=== PATIENT | male | born 1960 | race American Indian/Alaskan Native ===

== ENCOUNTER 2017-07-29 13:46 | Emergency (ER) | payer OTHER ==
[2017-07-29] MEDS ORDERED: NORMODYNE IV ONE (14:04)
[2017-07-29] MEDS ORDERED: APRESOLINE IV ONE (15:02)
[2017-07-29 16:54] LABS: Basophils # (Auto) 0.1 K/mm3 (0.0-0.1); Basophils % (Auto) 1.2 % (0.0-1.8); Eosinophils # (Auto) 0.1 K/mm3 (0.0-0.4); Eosinophils % (Auto) 2.2 % (0.0-4.3); Hematocrit 41.7 % (35.5-45.6); Hemoglobin 13.7 gm/dl (11.8-15.2); Lymphocytes # (Auto) 2.3 K/mm3 (1.2-5.4); Lymphocytes % (Auto) 47.9 % (13.4-35.0); Mean Corpuscular HGB Conc 33 % (32-34); Mean Corpuscular Hemoglobin 27 pg (28-32); Mean Corpuscular Volume 81 fl (84-94); Monocytes # (Auto) 0.4 K/mm3 (0.0-0.8); Monocytes % (Auto) 8.7 % (0.0-7.3); Platelet Count 222 K/mm3 (140-440); Red Blood Count 5.18 M/mm3 (3.65-5.03); Red Cell Distribution Width 15.8 % (13.2-15.2)
[2017-07-29] MEDS ORDERED: ZOFRAN IV ONE (17:11)
--- NOTE | 2017-07-29 18:05 | Emergency Department Report ---
HPI - General Chief Complaint: High BP Time Seen by Provider: 07/29/17 14:04 - HPI HPI: The patient is a 56-year-old male with a history of hypertension, who presents for evaluation of elevated blood pressure. He admits to some mild intermittent dizziness for the past week, exacerbated with position changes, improved with supine positioning at rest. He shares that he has been noncompliant with antihypertensive meds due to erectile dysfunction side effects in the past. The patient denies fever, headache, neck pain, paresthesias, focal motor weakness, blurry vision, ear pain, tinnitus, chest pain, hemoptysis, dyspnea, abdominal pain, confusion or altered mental status, or recent URI or diarrhea. ED Past Medical Hx - Past Medical History Previous Medical History?: Yes Hx Hypertension: Yes - Surgical History Past Surgical History?: Yes Additional Surgical History: lump removed from back - Social History Smoking Status: Never Smoker Substance Use Type: None - Medications Home Medications: Home Medications Medication Instructions Recorded Confirmed Last Taken Type Amlodipine Besylate [Norvasc] 10 mg PO QDAY #30 tablet 07/29/17 Unknown Rx Hydrochlorothiazide [HCTZ] 25 mg PO QDAY #30 tablet 07/29/17 Unknown Rx ED Review of Systems ROS: Stated complaint: HIGH BLOOD PRESSURE Other details as noted in HPI Constitutional: reports dizziness denies: fever ENT: denies: throat or neck pain Respiratory: denies: cough, shortness of breath Cardiovascular: denies: chest pain Endocrine: denies unexplained weight loss or gain Gastrointestinal: denies: abdominal pain, nausea Genitourinary: denies: dysuria Musculoskeletal: denies: leg swelling Skin: denies: rash Neurological: denies: headache Hematological/Lymphatic: denies: easy bleeding or easy bruising Psych: denies sadness or hopelessness Physical Exam - Physical Exam Vital Signs: Vital Signs 07/29/17 07/29/17 07/29/17 13:54 14:09 14:15 Temperature 97.9 F Pulse Rate 96 H 84 87 Respiratory 20 20 15 Rate Blood Pressure 236/140 221/146 Blood Pressure [Right] O2 Sat by Pulse 98 98 97 Oximetry 07/29/17 07/29/17 07/29/17 14:20 14:21 14:30 Temperature Pulse Rate 86 76 Respiratory 18 14 Rate Blood Pressure 264/164 198/129 Blood Pressure [Right] O2 Sat by Pulse 100 97 Oximetry 07/29/17 07/29/17 07/29/17 14:45 14:51 15:00 Temperature 97.9 F Pulse Rate 74 96 H 83 Respiratory 16 18 16 Rate Blood Pressure 181/113 202/130 Blood Pressure 236/140 [Right] O2 Sat by Pulse 96 100 99 Oximetry 07/29/17 07/29/17 07/29/17 15:15 15:21 15:30 Temperature Pulse Rate 79 87 83 Respiratory 17 15 Rate Blood Pressure 202/130 206/173 146/80 Blood Pressure [Right] O2 Sat by Pulse 97 98 Oximetry 07/29/17 07/29/17 07/29/17 15:45 16:00 16:15 Temperature Pulse Rate 79 71 70 Respiratory 17 9 L 16 Rate Blood Pressure 146/80 110/47 146/80 Blood Pressure [Right] O2 Sat by Pulse 99 100 98 Oximetry 07/29/17 07/29/17 07/29/17 16:31 16:45 17:00 Temperature Pulse Rate 74 71 71 Respiratory 10 L 16 15 Rate Blood Pressure 150/85 110/47 131/70 Blood Pressure [Right] O2 Sat by Pulse 97 98 97 Oximetry 07/29/17 17:15 Temperature Pulse Rate 71 Respiratory 16 Rate Blood Pressure 131/70 Blood Pressure [Right] O2 Sat by Pulse 99 Oximetry Physical Exam: General: well-nourished, well-developed, no acute distress Head: Normocephalic, atraumatic Eyes: normal sclera ENT: Mucous membranes are pink and moist Neck: trachea midline, neck supple, No neck stiffness, no cervical adenopathy Respiratory: Breath sounds equal bilaterally, no wheezing, rales, or rhonchi Cardio: S1 and S2 present, no murmurs, rubs, gallops, capillary refill is brisk Abdomen: Normoactive bowel sounds, soft abdomen, no rigidity, no guarding or rebound tenderness Musc: No pitting edema Skin: No rash Neuro: no facial drooping, normal speech Psych: Normal affect ED Course Vital Signs 07/29/17 07/29/17 07/29/17 13:54 14:09 14:15 Temperature 97.9 F Pulse Rate 96 H 84 87 Respiratory 20 20 15 Rate Blood Pressure 236/140 221/146 Blood Pressure [Right] O2 Sat by Pulse 98 98 97 Oximetry 07/29/17 07/29/1718 14:20 14:21 14:30 Temperature Pulse Rate 86 76 Respiratory 18 14 Rate Blood Pressure 264/164 198/129 Blood Pressure [Right] O2 Sat by Pulse 100 97 Oximetry 07/29/17 07/29/17 07/29/17 14:45 14:51 15:00 Temperature 97.9 F Pulse Rate 74 96 H 83 Respiratory 16 18 16 Rate Blood Pressure 181/113 202/130 Blood Pressure 236/140 [Right] O2 Sat by Pulse 96 100 99 Oximetry 07/29/17 07/29/17 07/29/17 15:15 15:21 15:30 Temperature Pulse Rate 79 87 83 Respiratory 17 15 Rate Blood Pressure 202/130 206/173 146/80 Blood Pressure [Right] O2 Sat by Pulse 97 98 Oximetry 07/29/17 07/29/17 07/29/17 15:45 16:00 16:15 Temperature Pulse Rate 79 71 70 Respiratory 17 9 L 16 Rate Blood Pressure 146/80 110/47 146/80 Blood Pressure [Right] O2 Sat by Pulse 99 100 98 Oximetry 07/29/17 07/29/17 07/29/17 16:31 16:45 17:00 Temperature Pulse Rate 74 71 71 Respiratory 10 L 16 15 Rate Blood Pressure 150/85 110/47 131/70 Blood Pressure [Right] O2 Sat by Pulse 97 98 97 Oximetry 07/29/17 17:15 Temperature Pulse Rate 71 Respiratory 16 Rate Blood Pressure 131/70 Blood Pressure [Right] O2 Sat by Pulse 99 Oximetry ED Medical Decision Making - Lab Data Result diagrams: 07/29/17 16:28 07/29/17 16:28 - Medical Decision Making The patient was seen and examined by myself. The patient is placed on a wheel cutter and continuous pulse ox. On initial evaluation, the patient was found to be in no distress. Evaluation orders are placed. The patient is given IV labetalol and hydralazine for his elevated blood pressure. Lab results exhibited mildly elevated creatinine of 2.0, BUN 20, the last labs were grossly unremarkable including WBC, hemoglobin, hematocrit, electrolytes. The on-call hospitalist Dr. Munoz was contacted. He agreed to consultation. He recommended discharge home with outpatient follow-up. On reexamination the patient's blood pressure was found to decrease outside of range concerning for hypertensive emergency. The patient is stable for discharge with outpatient follow-up. The patient is given follow-up and return instructions. The patient expressed understanding and agreed with the plan. The patient is discharged in stable condition. Critical care attestation.: If time is entered above; I have spent that time in minutes in the direct care of this critically ill patient, excluding procedure time. ED Disposition Clinical Impression: Hypertensive urgency, CKD (chronic kidney disease), stage I Disposition: DC-01 TO HOME OR SELFCARE Is pt being admited?: No Does the pt Need Aspirin: No Condition: Stable Instructions: Chronic Hypertension (ED), Hypertension (ED), Chronic Kidney Disease (ED) Prescriptions: Amlodipine Besylate [Norvasc] 10 mg PO QDAY #30 tablet Hydrochlorothiazide [HCTZ] 25 mg PO QDAY #30 tablet Referrals: CAT CASTREJON MD [Staff Physician] - 3-5 Days RENETTA LUKE MD [Staff Physician] - 3-5 Days Time of Disposition: 18:02
[2017-07-29 18:17] VITALS: BP 152/86
== END 2017-07-29 18:17 | disposition home or self-care (01) ==
LOC: ED 13:46
DX: I16.0 Hypertensive urgency (principal); I12.9 Hypertensive chronic kidney disease with stage 1 through stage 4 chronic kidney disease, or unspecified chronic kidney disease; N18.1 Chronic kidney disease, stage 1; Z88.0 Allergy status to penicillin
CPT/HCPCS: 36415; 80048; 83880; 85025; 93005; 93010; 96374; 96375; 99284; J0360; J2405

== ENCOUNTER 2017-08-10 14:18 | Outpatient (CLI) | payer OTHER ==
[2017-08-10 15:16] LABS: Bilirubin,Urine NEG (Negative); Blood,Urine NEG (Negative); Color,Urine Yellow (Yellow); Mucus,Urine FEW /HPF; Nitrite,Urine NEG (Negative); Urobilinogen,Urine < 2.0 mg/dL (<2.0)
== END 2017-08-10 14:19 | disposition home or self-care (01) ==
LOC: LAB 14:18
PROVIDERS: ATTEND Internal Medicine Nephrology
DX: I12.9 Hypertensive chronic kidney disease with stage 1 through stage 4 chronic kidney disease, or unspecified chronic kidney disease (principal); N18.3 Chronic kidney disease, stage 3 (moderate); E78.5 Hyperlipidemia, unspecified; R80.0 Isolated proteinuria; E87.6 Hypokalemia
CPT/HCPCS: 36415; 81001; 82088; 84165; 86021; 86160

== ENCOUNTER 2017-08-13 07:37 | Outpatient (CLI) | payer OTHER ==
--- NOTE | 2017-08-13 09:01 | Ultrasound Report ---
ULTRASOUND RENAL BILATERAL HISTORY: Chronic kidney disease, stage III. COMPARISON: None. TECHNIQUE: transabdominal ultrasound with color Doppler interrogation. FINDINGS: The right kidney measures 12.6 x 4.5 x 4.7cm. Right renal cortex: 1.6cm. The left kidney measures 12.7 x 5.5 x 5.0cm. Left renal cortex: 1.3cm. The kidneys are normal size, contour and position. There is increased renal parenchymal echotexture bilaterally. Corticomedullary differentiation is preserved. A 1.1 x 1.8 cm cyst is noted in the mid right kidney. No evidence for calculus, mass, hydronephrosis or perinephric fluid. The views of the bladder and the region of the ureters appear normal. IMPRESSION: Slightly echogenic kidneys consistent with nonspecific renal parenchymal disease. Right renal cyst.
== END 2017-08-13 07:38 | disposition home or self-care (01) ==
LOC: US 07:37
PROVIDERS: ATTEND Internal Medicine Nephrology
DX: I12.9 Hypertensive chronic kidney disease with stage 1 through stage 4 chronic kidney disease, or unspecified chronic kidney disease (principal); N18.3 Chronic kidney disease, stage 3 (moderate); N28.1 Cyst of kidney, acquired
CPT/HCPCS: 76770

== ENCOUNTER 2017-09-08 11:17 | Outpatient (CLI) | payer OTHER ==
[2017-09-08 12:02] LABS: Albumin 4.1 g/dL (3.9-5); Calcium 9.5 mg/dL (8.4-10.2)
== END 2017-09-08 11:18 | disposition home or self-care (01) ==
LOC: LAB 11:17
PROVIDERS: ATTEND Internal Medicine Nephrology
DX: I12.9 Hypertensive chronic kidney disease with stage 1 through stage 4 chronic kidney disease, or unspecified chronic kidney disease (principal); N18.3 Chronic kidney disease, stage 3 (moderate)
CPT/HCPCS: 36415; 80048; 82040; 84100

== ENCOUNTER 2018-07-04 21:23 | Inpatient (IN) | payer OTHER ==
[2018-07-04] MEDS ORDERED: ASPIRIN PO ONE (21:40)
[2018-07-04] MEDS ORDERED: TYLENOL PO STA (21:41)
[2018-07-04] MEDS ORDERED: NACL 0.9% 500 ML 500 ML IV ONE (21:41)
[2018-07-04 21:59] LABS: Basophils # (Auto) 0.1 K/mm3 (0.0-0.1); Basophils % (Auto) 0.7 % (0.0-1.8); Eosinophils % (Auto) 0.2 % (0.0-4.3); Hematocrit 41.6 % (35.5-45.6); Hemoglobin 13.6 gm/dl (11.8-15.2); Lymphocytes # (Auto) 1.6 K/mm3 (1.2-5.4); Lymphocytes % (Auto) 16.4 % (13.4-35.0); Mean Corpuscular HGB Conc 33 % (32-34); Mean Corpuscular Volume 80 fl (84-94); Monocytes # (Auto) 0.8 K/mm3 (0.0-0.8); Monocytes % (Auto) 8.4 % (0.0-7.3); Platelet Count 208 K/mm3 (140-440); Red Blood Count 5.22 M/mm3 (3.65-5.03); Red Cell Distribution Width 15.7 % (13.2-15.2)
[2018-07-04 22:18] LABS: Calcium 9.3 mg/dL (8.4-10.2)
[2018-07-04] MEDS ORDERED: LEVAQUIN 750MG/150ML 750 MG/150 ML BAG IV ONE (22:23)
--- NOTE | 2018-07-04 22:28 | Emergency Department Report ---
ED Chest Pain HPI - General Chief Complaint: Chest Pain Stated Complaint: CP Time Seen by Provider: 07/04/18 22:15 Source: patient, family Mode of arrival: Ambulatory Limitations: No Limitations - History of Present Illness Initial Comments: 57-year-old -[place] male presents to the emergency department with a 2 day history of progressively worsening chest pain and shortness of breath. The chest pain is generalized and radiates to both shoulders. 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 He also has a past medical history of chronic kidney disease and hypertension. He has not taken anything for her symptoms prior to presentation. His primary care physician is Dr. Bert Middleton. The patient denies feeling as if he is feverish, he does present with a fever and some tachycardia and a code sepsis was initiated. Severity scale (0 -10): 6 - Related Data Home Medications Medication Instructions Recorded Confirmed Last Taken Aspirin 81 mg PO DAILY 07/04/18 07/04/18 07/04/18 Atorvastatin Calcium [Lipitor] 40 mg PO DAILY 07/04/18 07/04/18 07/04/18 Furosemide [Lasix] 20 mg PO DAILY 07/04/18 07/04/18 07/04/18 Lisinopril 20 mg PO DAILY 07/04/18 07/04/18 07/04/18 Metoprolol Tartrate 50 mg PO BID 07/04/18 07/04/18 07/04/18 Minoxidil [Loniten] 2.5 mg PO BID 07/04/18 07/04/18 07/04/18 amLODIPine [Norvasc] 10 mg PO DAILY 07/04/18 07/04/18 07/04/18 Allergies Allergy/AdvReac Type Severity Reaction Status Date / Time Penicillins Allergy Hives Verified 05/24/16 11:20 Heart Score - HEART Score History: Moderately suspicious EKG: Non-specific Age: 45-65 Risk factors: > 3 risk factors or hx of atherosclerotic disease Troponin: < normal limit HEART Score: 5 - Critical Actions Critical Actions: 4-6 pts:12-16.6% risk of adverse cardiac event. Should be admitted ED Review of Systems ROS: Stated complaint: CP Other details as noted in HPI Comment: All other systems reviewed and negative Constitutional: fever. denies: malaise Eyes: denies: eye pain, vision change ENT: denies: ear pain, throat pain Respiratory: shortness of breath. denies: orthopnea Cardiovascular: chest pain. denies: edema Gastrointestinal: denies: abdominal pain, vomiting Genitourinary: denies: dysuria, discharge Musculoskeletal: denies: back pain, arthralgia Skin: denies: rash, lesions Neurological: denies: headache, weakness ED Past Medical Hx - Past Medical History Hx Hypertension: Yes Hx CVA: Yes Hx Heart Attack/AMI: Yes (new onset) Hx Congestive Heart Failure: No Hx Diabetes: No Hx Renal Disease: Yes Hx Headaches / Migraines: Yes Hx Seizures: No Hx Asthma: No Hx COPD: No Hx Dementia: No Hx HIV: No Additional medical history: high cholesterol, Sleep Apnea, Dysphagia, Left Hemiparesis - Surgical History Hx Coronary Stent: No Hx Pacemaker: No Hx Internal Defibrillator: No Additional Surgical History: lump removed from back - Social History Smoking Status: Never Smoker Substance Use Type: None - Medications Home Medications: Home Medications Medication Instructions Recorded Confirmed Last Taken Type Aspirin 81 mg PO DAILY 07/04/18 07/04/18 07/04/18 History Atorvastatin Calcium [Lipitor] 40 mg PO DAILY 07/04/18 07/04/18 07/04/18 History Furosemide [Lasix] 20 mg PO DAILY 07/04/18 07/04/18 07/04/18 History Lisinopril 20 mg PO DAILY 07/04/18 07/04/18 07/04/18 History Metoprolol Tartrate 50 mg PO BID 07/04/18 07/04/18 07/04/18 History Minoxidil [Loniten] 2.5 mg PO BID 07/04/18 07/04/18 07/04/18 History amLODIPine [Norvasc] 10 mg PO DAILY 07/04/18 07/04/18 07/04/18 History ED Physical Exam - General Limitations: No Limitations - Other Other exam information: GENERAL: The patient is well-developed well-nourished. HEENT: Normocephalic. Atraumatic. Patient has moist mucous membranes. EYES: Extraocular motions are intact. Pupils are equal and reactive to light bilaterally. NECK: Supple. Trachea is midline. CHEST/LUNGS: Rhonchi heard at the bases. Mild tachypnea but no accessory muscle use. There is no respiratory distress noted. HEART/CARDIOVASCULAR: Regular. There is mild tachycardia. There is no obvious murmur. ABDOMEN: Abdomen is soft, nontender. Patient has normal bowel sounds. There is no abdominal distention. SKIN: Skin is warm and dry. NEURO: The patient is awake, alert, and oriented. The patient is cooperative. There is a chronic left-sided facial droop and some residual left-sided weakness. The patient has normal speech. MUSCULOSKELETAL: There is no tenderness or deformity. There is no evidence of acute injury. ED Course Vital Signs 07/04/18 07/04/18 07/04/18 21:45 23:50 23:52 Temperature 102.9 F H 98.3 F Pulse Rate 115 H 105 H Respiratory 22 Rate Blood Pressure 181/93 145/81 O2 Sat by Pulse 99 Oximetry JOHNNY score - Johnny Score Aspirin use within the Past 7 Days: (0) No 3 or more CAD Risk Factors: (1) Yes 2 or more Angina events in past 24 hrs: (1) Yes Known CAD with more than 50% Stenosis: (0) No Elevated Cardiac Markers: (0) No ST Deviation Greater than 0.5mm: (0) No ED Medical Decision Making - Lab Data Result diagrams: 07/04/18 21:49 07/04/18 21:49 - EKG Data -: EKG Interpreted by Me EKG shows normal: sinus rhythm, axis, intervals, QRS complexes (Q waves to the septal leads), ST-T waves (nonspecific lateral T waves) Rate: tachycardia (111 bpm) - EKG Data When compared to previous EKG there are: no significant change Interpretation: unchanged when compared t (05/25/18) - Radiology Data Radiology results: report reviewed, image reviewed interpreted by me: Chest x-ray shows some mild infiltrate towards the right lower lung concerning for pneumonia. EXAM: NM LUNG SCAN PERF/VENT HISTORY: CP, elevated dimer COMPARISON: July 04, 2018. TECHNIQUE: 5 millicuries technetium 99 M MAA administered by IV. 10 millicurie xenon 133 administered by ventilation. FINDINGS: Relatively homogeneous uptake of tracer on the ventilation portion of the study. Decreased activity on the perfusion portion exam following the right lung apex predominately the apical segment. There may be some involvement of the posterior segment. One large mismatched and 1 moderate segmental defect compatible with intermediate probability exam for pulmonary embolus. IMPRESSION: Intermediate probability exam for pulmonary embolus. Transcribed By: LMA Dictated By: BROOKS PADRON MD Electronically Authenticated By: BROOKS PADRON MD Signed Date/Time: 07/05/18 0020 - Medical Decision Making This patient presents with a two-day history of some chest pain and shortness of breath. He also presents with some fever and tachycardia and a code sepsis was called. The patient was started empirically on some Levaquin. A chest x-ray was done that did show concern for a right lower lobe pneumonia. The rest of the blood work was mostly unremarkable except for his chronic kidney disease and he did have an elevated d-dimer level. Because of the chronic kidney disease, a VQ scan was done that came back as intermediate probability for pulmonary embolism. 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 The patient will be admitted to the hospital for further evaluation and treatment was accepted for admission by the hospitalist, Dr. Ambrose. - Differential Diagnosis sepsis, pneumonia, SC, PE Critical Care Time: No Critical care attestation.: If time is entered above; I have spent that time in minutes in the direct care of this critically ill patient, excluding procedure time. ED Disposition Clinical Impression: Acute chest pain, Abnormal findings on imaging test CRI (chronic renal insufficiency) Qualifiers: Chronic kidney disease stage: unspecified stage Qualified Code(s): N18.9 - Chronic kidney disease, unspecified Hypertension Qualifiers: Hypertension type: essential hypertension Qualified Code(s): I10 - Essential (primary) hypertension Sepsis Qualifiers: Sepsis type: sepsis due to unspecified organism Qualified Code(s): A41.9 - Sepsis, unspecified organism Pneumonia Qualifiers: Pneumonia type: due to unspecified organism Laterality: right Lung location: lower lobe of lung Qualified Code(s): J18.1 - Lobar pneumonia, unspecified organism Disposition: OP ADMIT IP TO THIS HOSP Is pt being admited?: Yes Condition: Serious Instructions: Chest Pain (ED), Hypertension (ED), Bacterial Pneumonia (ED) Time of Disposition: 00:49
[2018-07-04 22:32] LABS: INR 1.04 (0.87-1.13)
--- NOTE | 2018-07-04 22:39 | XRay Report ---
FINAL REPORT EXAM: XR CHEST ROUTINE 2V HISTORY: possible Sepsis TECHNIQUE: Chest PA and lateral PRIORS: None. FINDINGS: There are streaky opacities along with confluent areas of density within the right lower lobe distrib ution most consistent with atelectasis/infiltrate. Cardiac silhouette is within normal range for size. No acute abnormality identified within the left l khari. Pulmonary vasculature is unremarkable. No pleural effusion identified IMPRESSION: Atelectasis/infiltrate in the right lower lobe
[2018-07-04] MEDS ORDERED: NORMODYNE IV ONE (22:49)
[2018-07-04] MEDS ORDERED: APRESOLINE IV ONE (22:49)
--- NOTE | 2018-07-05 00:20 | Nuclear Medicine Report ---
FINAL REPORT EXAM: NM LUNG SCAN PERF/VENT HISTORY: CP, elevated dimer COMPARISON: July 04, 2018. TECHNIQUE: 5 millicuries technetium 99 M MAA administered by IV. 10 millicurie xenon 133 administere d by ventilation. FINDINGS: Relatively homogeneous uptake of tracer on the ventilation portion of the study. Decreased activity on the perfusion portion exam following the right lung apex predominately the apic al segment. There may be some involvement of the posterior segment. One large mismatched and 1 modera te segmental defect compatible with intermediate probability exam for pulmonary embolus. IMPRESSION: Intermediate probability exam for pulmonary embolus.
[2018-07-05] MEDS ORDERED: NACL 0.9% 1000 ML 1,000 ML IV ONE ×2 (01:16→03:13)
[2018-07-05] MEDS ORDERED: NACL 0.9% 1000 ML 1,000 ML ONE (01:18)
[2018-07-05] MEDS ORDERED: ZOFRAN IV PRN (01:25)
--- NOTE | 2018-07-05 03:49 | History and Physical Report ---
CHIEF COMPLAINT: Pleuritic chest pain. OTHER COMPLAINT: Includes shortness of breath and fever. HISTORY OF PRESENTING ILLNESS: The patient is a 57-year-old male who said he has been having pleuritic chest pain going on for 2 days associated with shortness of breath, fever, and palpitations. There is no history of cough, no history of chills, and no history of nausea or vomiting. The patient presented for further evaluation at the Emergency Room. PAST MEDICAL HISTORY: Pertinent for hemorrhagic stroke with left-sided weakness in 05/2018. Also, the patient's past medical history includes hypertension, coronary artery disease, status post myocardial infarction, chronic kidney disease, migraine headaches, and hypercholesterolemia as well as sleep apnea, dysphagia. PAST SURGICAL HISTORY: Pertinent for lump removal from the back. FAMILY HISTORY: Noncontributory. SOCIAL HISTORY: The patient does not smoke, does not drink alcohol, and does not use illicit drug. MEDICATIONS: The patient is on aspirin 81 mg daily, Lipitor 40 mg by mouth daily, Lasix 20 mg by mouth daily, lisinopril 20 mg by mouth daily, metoprolol tartrate 50 mg by mouth twice daily, minoxidil 2.5 mg by mouth twice daily, amlodipine 10 mg by mouth daily. ALLERGIES: THE PATIENT IS ALLERGIC TO PENICILLIN. REVIEW OF SYSTEMS: CONSTITUTIONAL: There is fever, but no chills, no diaphoresis. HEENT: He has no headache or sore throat. CARDIOVASCULAR SYSTEM: There is pleuritic chest pain, but no orthopnea. RESPIRATORY: Shortness of breath is present. There is no cough. GASTROINTESTINAL SYSTEM: There is no nausea, no vomiting. No abdominal pain, diarrhea, or constipation. NEUROLOGICAL: There is no numbness, no dizziness. The patient has chronic left-sided weakness that occurred during his stroke in May 2018. MUSCULOSKELETAL: There is no joint pain or swelling. DERMATOLOGICAL SYSTEM: There is no skin rash or itching. GENITOURINARY SYSTEM: There is no dysuria, hematuria, or flank pain. Rest of system review is normal. PHYSICAL EXAMINATION: GENERAL: At the time of exam, the patient was found to be alert, oriented x 3, and not in acute distress. VITAL SIGNS: At the initial time of presentation showed temperature of 102.9 degrees Fahrenheit, pulse of 115, respirations 22, blood pressure 181/93, O2 sat of 99% on room air. HEENT: Shows pupils to be equal, round, reactive to light and accommodation. Extraocular muscles are intact. NECK: Supple with no JVD or carotid bruits. CARDIOVASCULAR SYSTEM: Shows normal first and second heart sounds with no gallops or murmurs. RESPIRATORY: Shows good air entry on both sides of the lungs with crackles in the right lower lung area. GASTROINTESTINAL SYSTEM: Shows abdomen to be full, soft, nontender with no organomegaly or rigidity. NEUROLOGIC: Shows chronic left-sided weakness. MUSCULOSKELETAL SYSTEM: Shows no joint swelling or tenderness. DERMATOLOGICAL SYSTEM: Shows no skin rash. GENITOURINARY SYSTEM: Showing no costovertebral angle tenderness. PERTINENT LABORATORY DATA AND IMAGING STUDIES: The patient had chest x-ray done that shows right-sided infiltrate versus atelectasis. Also, the patient had V/Q scan done because of chronic renal failure and it shows intermediate probability for pulmonary embolism. The patient's lab results show CBC with normal white count, normal hemoglobin, and normal hematocrit with CBC differential showing elevated segmented neutrophils of 74.3%. The patient's coagulation studies show a high D-dimer level of 4314 that led to the ordering of V/Q scan and the patient's chemistry showed elevated BUN of 26 with high creatinine of 2.3 consistent with chronic renal failure. Rest of the patient's chemistry was unremarkable. Cardiac enzymes came back unremarkable. DIAGNOSES: 1. Right lung pneumonia. 2. Pulmonary embolism. PLAN OF ACTION: 1. The patient will be admitted as inpatient to telemetry. 2. The patient will be on IV Levaquin 750 mg daily for treatment of pneumonia. 3. The patient will have stat pulmonary consult with Dr. London because of pulmonary embolism in a patient with recent history of hemorrhagic stroke and the sewing machine tester, Dr. London requested for Doppler ultrasound of the lower extremities to be done and that he will follow up with the patient in the morning. 4. The patient will be on p.r.n. medications like Tylenol 650 mg by mouth every 4 hours for fever and headache and IV Zofran 4 mg every 8 hours for nausea and vomiting. 5. The patient will have bilateral Doppler ultrasound of the lower extremities in the morning. 6. The patient will be on oxygen by nasal cannula at 2 liters per minute. 7. The patient will have cardiac enzymes involving troponin, total CK, and CK-MB check every 6 hours x 2 more levels. 8. The patient will be on sequential compressive device for DVT prophylaxis until reviewed by the sewing machine tester. JOB# [id number] OCN/NTS
[2018-07-05 06:56] LABS: Bilirubin,Urine NEG (Negative); Blood,Urine NEG (Negative); Color,Urine Yellow (Yellow); Mucus,Urine FEW /HPF; Protein,Urine <15 mg/dL mg/dL (Negative); Urobilinogen,Urine < 2.0 mg/dL (<2.0)
--- NOTE | 2018-07-05 09:13 | Consultation ---
History of Present Illness - Reason for Consult Consult date: 07/05/18 acute renal failure, chronic renal failure - History of Present Illness the patient is a 57 year old male with chronic kidney disease was admitted for worsening chest pain and SOB, was found to have possible pneumonia on CXR and was started on levofloxacin, V/Q was done and showed intermediate probability of PE but was not started on anti coagulation due to high risk of bleeding, he was noted to have abnormal kidney function and renal consult was requested Past History Past Medical History: other (CKD) Medications and Allergies Allergies Allergy/AdvReac Type Severity Reaction Status Date / Time Penicillins Allergy Hives Verified 05/24/16 11:20 Home Medications Medication Instructions Recorded Confirmed Last Taken Type Aspirin 81 mg PO DAILY 07/04/18 07/04/18 07/04/18 History Atorvastatin Calcium [Lipitor] 40 mg PO DAILY 07/04/18 07/04/18 07/04/18 History Furosemide [Lasix] 20 mg PO DAILY 07/04/18 07/04/18 07/04/18 History Lisinopril 20 mg PO DAILY 07/04/18 07/04/18 07/04/18 History Metoprolol Tartrate 50 mg PO BID 07/04/18 07/04/18 07/04/18 History Minoxidil [Loniten] 2.5 mg PO BID 07/04/18 07/04/18 07/04/18 History amLODIPine [Norvasc] 10 mg PO DAILY 07/04/18 07/04/18 07/04/18 History Active Meds: Active Medications Acetaminophen (Tylenol) 650 mg PO Q4H PRN PRN Reason: Fever >101 Levofloxacin/Dextrose (Levaquin 750mg/150ml) 750 mg in 150 mls @ 100 mls/hr IV Q48HR [facility]; Protocol Sodium Chloride (Nacl 0.9% 1000 Ml) 1,000 mls @ 125 mls/hr IV ONCE ONE Stop: 07/05/18 11:12 Last Admin: 07/05/18 03:15 Dose: 125 mls/hr Documented by: Ondansetron HCl (Zofran) 4 mg IV Q8H PRN PRN Reason: Nausea And Vomiting Review of Systems All systems: negative (shortness of breath) Exam - Vital Signs Vital signs: Vital Signs Temp Pulse Resp BP Pulse Ox 102.9 F H 115 H 22 181/93 99 07/04/18 21:45 07/04/18 21:45 07/04/18 21:45 07/04/18 21:45 07/04/18 21:45 - General Appearance General appearance: well-developed, well-nourished, appears stated age EENT: ATNC, PERRL, mucous membranes moist Neck: Present: neck supple Respiratory: Clear to Ascultation Heart: regular, S1S2 Gastrointestinal: Present: normoactive bowel sounds. Absent: tenderness, distended Integumentary: no rash, warm and dry Neurologic: no focal deficit, no asterixis, alert and oriented x3 Musculoskeletal: Present: other (no edema in BLE) Psychiatric: cooperative Results - Lab Results 07/04/18 21:49 07/04/18 21:49 Most recent lab results Calcium 9.3 mg/dL (8.4-10.2) 07/04/18 21:49 Assessment and Plan pneumonia possible PE chronic kidney disease Chest pain - Cr baseline ~1.5-2, started on IVF - will check urine lytes, protein - will check renal US - renally dose meds - strict I&O - daily weight thank you for allowing to participate in Mr Shipley's care Escobar Bender MD [phone]
[2018-07-05] MEDS ORDERED: LEVAQUIN 750MG/150ML 750 MG/150 ML BAG IV SCH (10:00)
[2018-07-05] MEDS ORDERED: HYDROMET PO PRN (11:03)
--- NOTE | 2018-07-05 11:29 | Consultation ---
History of Present Illness Consult date: 07/05/18 Requesting physician: RALPH BARBER Reason for consult: pulmonary embolism History of present illness: 57 y/o male who presented to the ED with pleuritic type chest pain. Patient had V/Q done as he has chronic renal disease and this was intermediate in value. Pulmonary was consulted secondary to concern for anticoagulation given recent hemorrhagic stroke last month. I evaluated patient on the floor and patient is actually complaining of upper abdominal pain that radiates to his right shoulder. He also says that he has this pain when he eats as well. His abdomen is mildly distended , soft but does have some tenderness with palpation that recreates the same type pain. He has never had abdominal surgery. My partner asked for bilateral lower ext dopplers but these have not been completed yet. Remainder of the review is negative. Past History Past Medical History: hypertension, hyperlipidemia, other (CKD, hemorrhagic stroke in 05/2018) Medications and Allergies Allergies Allergy/AdvReac Type Severity Reaction Status Date / Time Penicillins Allergy Hives Verified 05/24/16 11:20 Home Medications Medication Instructions Recorded Confirmed Last Taken Type Aspirin 81 mg PO DAILY 07/04/18 07/04/18 07/04/18 History Atorvastatin Calcium [Lipitor] 40 mg PO DAILY 07/04/18 07/04/18 07/04/18 History Furosemide [Lasix] 20 mg PO DAILY 07/04/18 07/04/18 07/04/18 History Lisinopril 20 mg PO DAILY 07/04/18 07/04/18 07/04/18 History Metoprolol Tartrate 50 mg PO BID 07/04/18 07/04/18 07/04/18 History Minoxidil [Loniten] 2.5 mg PO BID 07/04/18 07/04/18 07/04/18 History amLODIPine [Norvasc] 10 mg PO DAILY 07/04/18 07/04/18 07/04/18 History Active Meds: Active Medications Acetaminophen (Tylenol) 650 mg PO Q4H PRN PRN Reason: Fever >101 Hydrocodone Bit/Homatropine Methylb (Hydromet) 10 ml PO Q6H PRN PRN Reason: Cough Levofloxacin/Dextrose (Levaquin 750mg/150ml) 750 mg in 150 mls @ 100 mls/hr IV Q48HR [facility]; Protocol Last Admin: 07/05/18 09:23 Dose: 100 mls/hr Documented by: Morphine Sulfate (Morphine) 2 mg IV Q4H PRN PRN Reason: Pain, Moderate (4-6) Ondansetron HCl (Zofran) 4 mg IV Q8H PRN PRN Reason: Nausea And Vomiting Review of Systems All systems: negative Physical Examination Vital signs: Vital Signs Temp Pulse Resp BP Pulse Ox 102.9 F H 115 H 22 181/93 99 07/04/18 21:45 07/04/18 21:45 07/04/18 21:45 07/04/18 21:45 07/04/18 21:45 General appearance: no acute distress, alert, other (left sided facial droop) Eyes: non-icteric ENT: oropharynx moist Neck: supple, no lymphadenopathy Effort: normal Ascultation: Bilateral: clear Percussion: Bilateral: not dull Tactile fremitus: Bilateral: normal Cardiovascular: regular rate and rhythm Gastrointestinal: normoactive bowel sounds, soft, other (mild distention) Integumentary: normal Extremities: no cyanosis, no edema, pink and warm, pulses normal normal mental status Results - Laboratory Findings CBC and BMP: 07/04/18 21:49 07/04/18 21:49 PT/INR, D-dimer PT 14.0 Sec. (12.2-14.9) 07/04/18 21:49 INR 1.04 (0.87-1.13) 07/04/18 21:49 D-Dimer 4314.78 ng/mlDDU (0-234) H 07/04/18 21:49 Abnormal lab findings: Abnormal Labs 07/04/18 07/04/18 07/04/18 21:49 21:49 21:49 RBC 5.22 H MCV 80 L MCH 26 L RDW 15.7 H [place] % (Auto) 8.4 H Seg Neutrophils % 74.3 H D-Dimer 4314.78 H VBG pH 7.430 H BUN Creatinine Glucose 07/04/18 21:49 RBC MCV MCH RDW [place] % (Auto) Seg Neutrophils % D-Dimer VBG pH BUN 26 H Creatinine 2.3 H Glucose 166 H - Diagnostic Findings Chest x-ray: image reviewed (Plate-like atelectasis in the right lower lobe) Assessment and Plan 57 y/o male with recent hemorrhagic stroke, now admitted with chest pain vs epigastric pain with radiation to the right neck shoulder region and concern for PE. 1. Agree with Dopplers 2. Suggest neurology consult with the question of could this patient be anticoagulated if need be 3. At this time I would not suggest empiric anticoagulation given history of hemorrhagic CVA. Patient is currently on ASA so not sure if he just had hemorrhagic conversion of embolic stroke vs true hemorrhagic stroke. As stated in number 2, suggest Neuro evaluation. I do agree with lower ext dopplers and if positive, a bridgett filter would be most appropriate. 4. I am concern that this pain may be related to his gallbladder. Suggest ultrasound and checking LFT's. May even need a HIDA but would start with ultrasound first. 5. Just to be clear, I would not recommend starting anticoagulation on this person until he has been evaluated by neuro and there is clear documented evidence of VTE.
[2018-07-05] MEDS: TYLENOL PO PRN ×2 (11:47→23:30)
[2018-07-05 12:35] LABS: Creatine Kinase MB 1.5 ng/mL (0.0-4.0)
--- NOTE | 2018-07-05 15:13 | Cat Scan Report ---
CT HEAD WITHOUT CONTRAST: HISTORY: Hemorrhagic stroke. TECHNIQUE: Sequential CT images without contrast. FINDINGS: The small hemorrhage in the medial right thalamus seen on 06/02/18 exam has resolved. No new areas of hemorrhage are identified. Mild nonspecific chronic white matter changes are stable. Focal chronic infarcts in the left frontal white matter, right frontal white matter and right parietal white matter are again noted and unchanged. Ventricular size is within normal limits. Chronic infarct in the left cerebellar hemisphere has evolved since the previous exam. The remainder of the posterior fossa is within normal limits. The calvarium, sinuses and mastoid air cells are within normal limits. IMPRESSION: No acute intracranial process is identified. Resolved right thalamic hemorrhage since 06/02/18. Multiple chronic infarcts as described above.
[2018-07-05] MEDS: MORPHINE IV PRN (15:19)
--- NOTE | 2018-07-05 15:24 | Ultrasound Report ---
ULTRASOUND ABDOMEN COMPLETE: ULTRASOUND RENAL BILATERAL: TECHNIQUE: Transabdominal ultrasound with color Doppler interrogation. HISTORY: Cholecystitis, renal failure. COMPARISON: none. FINDINGS: LIVER: Normal. BILIARY SYSTEM: Normal. PANCREAS: Normal. SPLEEN: Normal. KIDNEYS: Both kidneys are normal size and position measuring 12-13 cm in length. The renal parenchyma is echogenic consistent with medical renal disease. No focal renal lesion or hydronephrosis. The bladder is unremarkable. AORTA/IVC: Normal. ASCITES: None. IMPRESSION: Medical renal disease.
[2018-07-05 16:58] LABS: Creatinine,Urine 91.6 mg/dL (0.1-20.0); Protein/Creatinine Ratio,Urine 0.17
--- NOTE | 2018-07-05 17:36 | Consultation ---
History of Present Illness Consult date: 07/05/18 Requesting physician: KIKA BRITO Reason for Consult: S/P [id number] hemorrhage History of present illness: 57 yr old male with hx of hypertension and hemorrhagic CVA in 2017, presented to ED with hx of chest pain radiating to both shoulders and SOB. CXR is consistent with pneumonia. Perfusion scan is intermediately compatible with PE. The pt. was noted to be febrile on admission as well. He has been started on antibiotics. The pt. presented in 05/2018 with balance difficulty and was found to have a rt. cerebellar hemisphere stroke. He was given TPA. A follow-up CT then revealed a 1 cm by 2 cm thalamic hemorrhage. The pt. has been in rehab and is improving in strength and coordination. We are asked to see the pt. and determine if it is safe for him to be anticoagulated if it should become necessary. Past History Past Medical History: hypertension, hyperlipidemia, other (CKD, hemorrhagic stroke in 05/2018) Social history: , lives with family Medications and Allergies Allergies Allergy/AdvReac Type Severity Reaction Status Date / Time Penicillins Allergy Hives Verified 05/24/16 11:20 Home Medications Medication Instructions Recorded Confirmed Last Taken Type Aspirin 81 mg PO DAILY 07/04/18 07/04/18 07/04/18 History Atorvastatin Calcium [Lipitor] 40 mg PO DAILY 07/04/18 07/04/18 07/04/18 History Furosemide [Lasix] 20 mg PO DAILY 07/04/18 07/04/18 07/04/18 History Lisinopril 20 mg PO DAILY 07/04/18 07/04/18 07/04/18 History Metoprolol Tartrate 50 mg PO BID 07/04/18 07/04/18 07/04/18 History Minoxidil [Loniten] 2.5 mg PO BID 07/04/18 07/04/18 07/04/18 History amLODIPine [Norvasc] 10 mg PO DAILY 07/04/18 07/04/18 07/04/18 History Active Meds: Active Medications Acetaminophen (Tylenol) 650 mg PO Q4H PRN PRN Reason: Fever >101 Last Admin: 07/05/18 11:47 Dose: 650 mg Documented by: Hydrocodone Bit/Homatropine Methylb (Hydromet) 10 ml PO Q6H PRN PRN Reason: Cough Levofloxacin/Dextrose (Levaquin 750mg/150ml) 750 mg in 150 mls @ 100 mls/hr IV Q48HR [facility]; Protocol Last Admin: 07/05/18 09:23 Dose: 100 mls/hr Documented by: Dextrose/Sodium Chloride (D5/0.45ns) 1,000 mls @ 75 mls/hr IV DIRECT [facility] Stop: 07/06/18 07:19 Morphine Sulfate (Morphine) 2 mg IV Q4H PRN PRN Reason: Pain, Moderate (4-6) Last Admin: 07/05/18 15:19 Dose: 2 mg Documented by: Ondansetron HCl (Zofran) 4 mg IV Q8H PRN PRN Reason: Nausea And Vomiting Review of Systems All systems: negative (difficulty swallowing) Physical Examination - Vital Signs Vital Signs: Vital Signs Temp Pulse Resp BP Pulse Ox 102.9 F H 115 H 22 181/93 99 07/04/18 21:45 07/04/18 21:45 07/04/18 21:45 07/04/18 21:45 07/04/18 21:45 - Physical Exam Narrative exam: Neurological Exam - 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 V-1 thru V-3 intact on the rt. On the left there is numbness in the V-2 distribution. Decreased hearing left ear. Left facial droop. Tongue is midline. Motor -4/5 distal extensors of left arm and leg. 5/5 on rt. Reflexes - +1 left, trace on rt. Cerebellar - left dysmetria, clumsy [place] on left. fine finger movements intact Sensory - intact in limbs to touch and sharp. Results - Laboratory Findings CBC and BMP: 07/04/18 21:49 07/04/18 21:49 Abnormal Lab Findings: Abnormal Labs 07/04/18 07/04/18 07/04/18 21:49 21:49 21:49 RBC 5.22 H MCV 80 L MCH 26 L RDW 15.7 H [place] % (Auto) 8.4 H Seg Neutrophils % 74.3 H D-Dimer 4314.78 H VBG pH 7.430 H BUN Creatinine Glucose Urine Creatinine Urine Total Protein 07/04/18 07/05/18 21:49 15:30 RBC MCV MCH RDW [place] % (Auto) Seg Neutrophils % D-Dimer VBG pH BUN 26 H Creatinine 2.3 H Glucose 166 H Urine Creatinine 91.6 H Urine Total Protein 16 H Assessment and Plan 57 yr old male with hx of hemorrhagic stroke in 2017, presents now with possible PE. The question is, is it safe to anticoagulate if necessary. The current CT shows resolution of the previous hemorrhage. After 4 to 6 weeks follwing a hemorrhagic stroke it should be safe to anticoagulate if necessary. Special attention must be given to this patient's blood pressure. Plan - Awaiting report of doppler studies. Agree with umbrella placement if positive. Otherwise it should be safe to anticoagulate if necessary but would advocate strict blood pressure control.
--- NOTE | 2018-07-05 17:42 | Event Note ---
Date: 07/05/18 Came to see patient who was admitted today, she is not present in the room. Reviewed chart, will continue current treatment
[2018-07-05] MEDS ORDERED: D5/0.45NS 1,000 ML IV SCH (18:00)
[2018-07-06 05:06] LABS: Basophils % (Auto) 0.6 % (0.0-1.8); Eosinophils % (Auto) 0.4 % (0.0-4.3); Hematocrit 35.5 % (35.5-45.6); Hemoglobin 11.6 gm/dl (11.8-15.2); Lymphocytes # (Auto) 1.5 K/mm3 (1.2-5.4); Lymphocytes % (Auto) 18.1 % (13.4-35.0); Mean Corpuscular HGB Conc 33 % (32-34); Mean Corpuscular Volume 80 fl (84-94); Monocytes # (Auto) 0.8 K/mm3 (0.0-0.8); Platelet Count 191 K/mm3 (140-440); Red Blood Count 4.44 M/mm3 (3.65-5.03); Red Cell Distribution Width 15.5 % (13.2-15.2)
[2018-07-06 05:31] LABS: Calcium 8.6 mg/dL (8.4-10.2)
--- NOTE | 2018-07-06 07:03 | Vascular Lab Report ---
FINAL REPORT EXAM: VL VENOUS DUPLEX LE BILAT HISTORY: DVT TECHNIQUE: Routine Doppler compression imaging was obtained of the deep venous systems of both lower extremities extending from the common femoral veins through the popliteal veins. The right posterior to vein the calf was examined. The left calf veins could not be examined. Augmentation maneuvers and waveforms were recorded. FINDINGS: All visualized veins compress normally. The waveforms appear normal. IMPRESSION: Negative exam. No evidence of deep venous thrombosis bilaterally.
--- NOTE | 2018-07-06 08:15 | Progress Note ---
Assessment and Plan 57 y/o male with recent hemorrhagic stroke, now admitted with chest pain vs epigastric pain with radiation to the right neck shoulder region and concern for PE. 1. Await doppler results 2. Continue to hole on anticoagulation. I appreciate Neurology recommendations and expert advice about anticoagulation. However, I am still not convinced this is VTE. Would prefer to have documented evidence. If doppler's positive, then would start IV heparin given renal insufficiency. It appears patient had embolic stroke and then had hemorrhagic conversion post TPA, based upon Neurology note. 3. Continue supplemental O2 4. Still suggest evaluating gallbladder with LFT's and at least ultrasound. If these are abnormal, could consider HIDA scan. Subjective Date of service: 07/06/18 Interval history: No acute events. Seen by Renal and Neuro yesterday. Greatly appreciate Neuro note. Objective Vital Signs - 12hr 07/05/18 07/05/18 07/05/18 22:00 22:07 22:10 Temperature 100.8 F H 100.8 F H Pulse Rate 103 H 103 H Respiratory 36 H 36 H Rate Blood Pressure 140/72 O2 Sat by Pulse 96 93 93 Oximetry 07/06/18 07/06/18 05:12 07:41 Temperature 99.8 F H Pulse Rate 90 Respiratory 24 Rate Blood Pressure 175/101 141/74 O2 Sat by Pulse 95 Oximetry Constitutional: no acute distress, alert, other (left sided facial droop) Eyes: non-icteric ENT: oropharynx moist Neck: supple, no lymphadenopathy Effort: normal Ascultation: Bilateral: clear Percussion: Bilateral: not dull Tactile fremitus: Bilateral: normal Cardiovascular: regular rate and rhythm Gastrointestinal: normoactive bowel sounds, soft, other (mild distention) Integumentary: normal Extremities: no cyanosis, no edema, pink and warm, pulses normal Neurologic: normal mental status CBC and BMP: 07/06/18 04:35 07/06/18 04:35 ABG, PT/INR, D-dimer: PT/INR, D-dimer PT 14.0 Sec. (12.2-14.9) 07/04/18 21:49 INR 1.04 (0.87-1.13) 07/04/18 21:49 D-Dimer 4314.78 ng/mlDDU (0-234) H 07/04/18 21:49 Abnormal lab findings: Abnormal Labs 07/04/18 07/04/18 07/04/18 21:49 21:49 21:49 RBC 5.22 H Hgb MCV 80 L MCH 26 L RDW 15.7 H [place] % (Auto) 8.4 H Seg Neutrophils % 74.3 H D-Dimer 4314.78 H VBG pH 7.430 H Chloride BUN Creatinine Glucose Urine Creatinine Urine Total Protein 07/04/18 07/05/18 07/06/18 21:49 15:30 04:35 RBC Hgb 11.6 L MCV 80 L MCH 26 L RDW 15.5 H [place] % (Auto) 9.0 H Seg Neutrophils % 71.9 H D-Dimer VBG pH Chloride BUN 26 H Creatinine 2.3 H Glucose 166 H Urine Creatinine 91.6 H Urine Total Protein 16 H 07/06/18 04:35 RBC Hgb MCV MCH RDW [place] % (Auto) Seg Neutrophils % D-Dimer VBG pH Chloride 107.2 H BUN Creatinine 2.1 H Glucose 131 H Urine Creatinine Urine Total Protein
--- NOTE | 2018-07-06 10:04 | Progress Note ---
Assessment and Plan pneumonia possible PE chronic kidney disease Chest pain - Cr baseline ~1.5-2, mild improvement since admission, off IVF for now - renal US negative for obstruction - renally dose meds - strict I&O - daily weight thank you for allowing to participate in Mr Shipley's care Escobar Bender MD [phone] Subjective Date of service: 07/06/18 Principal diagnosis: acute renal failure Interval history: denies acute issues Objective - Vital Signs Vital signs: Vital Signs - 12hr 07/05/18 07/05/18 07/06/18 22:07 22:10 05:12 Temperature 100.8 F H 100.8 F H 99.8 F H Pulse Rate 103 H 103 H 90 Respiratory 36 H 36 H 24 Rate Blood Pressure 140/72 175/101 O2 Sat by Pulse 93 93 95 Oximetry 07/06/18 07:41 Temperature Pulse Rate Respiratory Rate Blood Pressure 141/74 O2 Sat by Pulse Oximetry - General Appearance General appearance: well-developed, well-nourished, appears stated age EENT: ATNC, PERRL, mucous membranes moist Neck: no JVD, no carotid bruit Respiratory: Present: Clear to Ascultation. Absent: Rales, Ronchi Cardiology: regular, S1S2 Gastrointestinal: normoactive bowel sounds, no tenderness, no distended Integumentary: no rash, warm and dry Neurologic: no focal deficit, no asterixis, alert and oriented x3 Musculoskeletal: other (no edema in BLE) Psychiatric: mood/affect appropriate, cooperative - Lab 07/06/18 04:35 07/06/18 04:35 Most recent lab results Calcium 8.6 mg/dL (8.4-10.2) 07/06/18 04:35 Phosphorus 2.90 mg/dL (2.5-4.5) 07/06/18 04:35 Urine Creatinine 91.6 mg/dL (0.1-20.0) H 07/05/18 15:30 Urine Sodium 99 mmol/L 07/05/18 15:30 Urine Total Protein 16 mg/dL (5-11.8) H 07/05/18 15:30 Medications & Allergies - Medications Allergies/Adverse Reactions: Allergies Penicillins Allergy (Verified 05/24/16 11:20) Hives Home Medications: Home Medications Medication Instructions Recorded Confirmed Last Taken Type Aspirin 81 mg PO DAILY 07/04/18 07/04/18 07/04/18 History Atorvastatin Calcium [Lipitor] 40 mg PO DAILY 07/04/18 07/04/18 07/04/18 History Furosemide [Lasix] 20 mg PO DAILY 07/04/18 07/04/18 07/04/18 History Lisinopril 20 mg PO DAILY 07/04/18 07/04/18 07/04/18 History Metoprolol Tartrate 50 mg PO BID 07/04/18 07/04/18 07/04/18 History Minoxidil [Loniten] 2.5 mg PO BID 07/04/18 07/04/18 07/04/18 History amLODIPine [Norvasc] 10 mg PO DAILY 07/04/18 07/04/18 07/04/18 History Active Medications: Generic Name Dose Route Start Last Admin Trade Name Freq PRN Reason Stop Dose Admin Acetaminophen 650 mg 07/05/18 01:17 07/05/18 23:30 Tylenol PO 650 mg Q4H PRN Administration Fever >101 Hydrocodone Bit/Homatropine Methylb 10 ml 07/05/18 11:03 Hydromet PO Q6H PRN Cough Levofloxacin/Dextrose 750 mg in 150 mls @ 100 mls/hr 07/05/18 10:00 07/05/18 09:23 Levaquin 750mg/150ml IV 100 mls/hr Q48HR [facility] Administration Protocol Morphine Sulfate 2 mg 07/05/18 11:04 07/05/18 15:19 Morphine IV 2 mg Q4H PRN Administration Pain, Moderate (4-6) Ondansetron HCl 4 mg 07/05/18 01:25 Zofran IV Q8H PRN Nausea And Vomiting
--- NOTE | 2018-07-06 18:05 | Progress Note ---
Assessment and Plan Assessment and plan: 57-year-old man whose past medical history significant for hypertension, CVA with residual left-sided weakness is present to emergency department with complaints of chest pain, shortness of breath and fever. Patient's code was for the suspicion of PE was moderate probability for PE. Pneumonia - Chest x-ray showed right lower lobe pneumonia - Given his difficulty swallowing, aspiration pneumonia - Patient is IV Levaquin, he is allergic to penicillin - ID consulted, because despite on Levaquin he still febrile Moderate probability PE on VQ scan: - Doppler ultrasound was negative for DVT - Couldn't do CTA - Patient does small hemorrhagic stroke on his previous admission - Neurology and pulmonary was consulted and recommended against anticoagulation Dysphagia - Due to neurologic cause - Speech therapy was consulted and recommendation appreciated CKD - Patient is at baseline Disposition - Continue inpatient care. History Interval history: Patient was seen and evaluated this morning, patient is still shooting fever, c/o shortness of breath. Hospitalist Physical - Physical exam Narrative exam: Not in cardiopulmonary distress. On IN oxygen The patient appeared well nourished and normally developed. Vital signs as documented. Head exam is unremarkable. No scleral icterus . Neck is without jugular venous distension, thyromegaly, or carotid bruits. Lungs are clear to auscultation. Cardiac exam reveals regular rate and Rhythm. First and second heart sounds normal. No murmurs, rubs or gallops. Abdominal exam reveals normal bowel sounds, no masses, no organomegaly and no aortic enlargement. Extremities are nonedematous . MULTIMEDIA ENGINEER: Alert and oriented 3. Mild left-sided weakness with left sided facial palsy. - Constitutional Vitals: Temp Pulse Resp BP Pulse Ox 99.0 F 95 H 24 158/94 92 07/06/18 16:54 07/06/18 16:54 07/06/18 16:54 07/06/18 16:54 07/06/18 16:54 Results - Labs CBC & Chem 7: 07/07/18 05:40 07/07/18 05:40 Labs: Laboratory Last Values WBC 8.3 K/mm3 (4.5-11.0) 07/06/18 04:35 RBC 4.44 M/mm3 (3.65-5.03) 07/06/18 04:35 Hgb 11.6 gm/dl (11.8-15.2) L 07/06/18 04:35 Hct 35.5 % (35.5-45.6) D 07/06/18 04:35 MCV 80 fl (84-94) L 07/06/18 04:35 MCH 26 pg (28-32) L 07/06/18 04:35 MCHC 33 % (32-34) 07/06/18 04:35 RDW 15.5 % (13.2-15.2) H 07/06/18 04:35 Plt Count 191 K/mm3 (140-440) 07/06/18 04:35 Lymph % (Auto) 18.1 % (13.4-35.0) 07/06/18 04:35 [place] % (Auto) 9.0 % (0.0-7.3) H 07/06/18 04:35 Eos % (Auto) 0.4 % (0.0-4.3) 07/06/18 04:35 Baso % (Auto) 0.6 % (0.0-1.8) 07/06/18 04:35 Lymph # 1.5 K/mm3 (1.2-5.4) 07/06/18 04:35 [place] # 0.8 K/mm3 (0.0-0.8) 07/06/18 04:35 Eos # 0.0 K/mm3 (0.0-0.4) 07/06/18 04:35 Baso # 0.0 K/mm3 (0.0-0.1) 07/06/18 04:35 Seg Neutrophils % 71.9 % (40.0-70.0) H 07/06/18 04:35 Seg Neutrophils # 6.0 K/mm3 (1.8-7.7) 07/06/18 04:35 PT 14.0 Sec. (12.2-14.9) 07/04/18 21:49 INR 1.04 (0.87-1.13) 07/04/18 21:49 D-Dimer 4314.78 ng/mlDDU (0-234) H 07/04/18 21:49 VBG pH 7.430 (7.320-7.420) H 07/04/18 21:49 Sodium 140 mmol/L (137-145) 07/06/18 04:35 Potassium 4.2 mmol/L (3.6-5.0) 07/06/18 04:35 Chloride 107.2 mmol/L (98-107) H 07/06/18 04:35 Carbon Dioxide 22 mmol/L (22-30) 07/06/18 04:35 Anion Gap 15 mmol/L 07/06/18 04:35 BUN 19 mg/dL (9-20) 07/06/18 04:35 Creatinine 2.1 mg/dL (0.8-1.5) H 07/06/18 04:35 Estimated GFR 39 ml/min 07/06/18 04:35 BUN/Creatinine Ratio 9 % 07/06/18 04:35 Glucose 131 mg/dL (75-100) H 07/06/18 04:35 Lactic Acid 1.50 mmol/L (0.7-2.0) 07/05/18 11:47 Calcium 8.6 mg/dL (8.4-10.2) 07/06/18 04:35 Phosphorus 2.90 mg/dL (2.5-4.5) 07/06/18 04:35 Total Bilirubin 0.40 mg/dL (0.1-1.2) 07/04/18 21:49 AST 24 units/L (5-40) 07/04/18 21:49 ALT 41 units/L (7-56) 07/04/18 21:49 Alkaline Phosphatase 73 units/L (35-129) 07/04/18 21:49 Total Creatine Kinase 113 units/L (55-170) 07/05/18 11:47 CK-MB (CK-2) 1.5 ng/mL (0.0-4.0) 07/05/18 11:47 CK-MB (CK-2) Rel Index 1.3 (0-4) 07/05/18 11:47 Troponin T < 0.010 ng/mL (0.00-0.029) 07/05/18 11:47 NT-Pro-B Natriuret Pep 332.9 pg/mL (0-900) 07/04/18 Unknown Total Protein 7.8 g/dL (6.3-8.2) 07/04/18 21:49 Albumin 4.0 g/dL (3.9-5) 07/04/18 21:49 Albumin/Globulin Ratio 1.1 % 07/04/18 21:49 Urine Color Yellow (Yellow) 07/05/18 06:19 Urine Turbidity Clear (Clear) 07/05/18 06:19 Urine pH 5.0 (5.0-7.0) 07/05/18 06:19 Ur Specific [place] 1.015 (1.003-1.030) 07/05/18 06:19 Urine Protein <15 mg/dl mg/dL (Negative) 07/05/18 06:19 Urine Glucose (UA) Neg mg/dL (Negative) 07/05/18 06:19 Urine Ketones Neg mg/dL (Negative) 07/05/18 06:19 Urine Blood Neg (Negative) 07/05/18 06:19 Urine Nitrite Neg (Negative) 07/05/18 06:19 Urine Bilirubin Neg (Negative) 07/05/18 06:19 Urine Urobilinogen < 2.0 mg/dL (<2.0) 07/05/18 06:19 Ur Leukocyte Esterase Neg (Negative) 07/05/18 06:19 Urine WBC (Auto) 1.0 /HPF (0.0-6.0) 07/05/18 06:19 Urine RBC (Auto) 4.0 /HPF (0.0-6.0) 07/05/18 06:19 U Epithel Cells (Auto) 1.0 /HPF (0-13.0) 07/05/18 06:19 Urine Mucus Few /HPF 07/05/18 06:19 Urine Creatinine 91.6 mg/dL (0.1-20.0) H 07/05/18 15:30 Protein/Creatinin Ratio 0.17 07/05/18 15:30 Urine Sodium 99 mmol/L 07/05/18 15:30 Urine Total Protein 16 mg/dL (5-11.8) H 07/05/18 15:30 Nutrition/Malnutrition Assess - Dietary Evaluation Nutrition/Malnutrition Findings: Nutrition Notes Start: 07/05/18 15:23 Freq: Status: Active Protocol: Document 07/06/18 10:02 LM (Rec: 07/06/18 11:12 LM [id number]) Co-Sign 07/06/18 10:02 LP Nutrition Notes Initial or Follow up Brief Note Current Diagnosis CKD(stage I-IV) Coronary Artery Disease Hypertension Stroke Other Pertinent Diagnosis R Lung Pneu, PE, CKD Current Diet Pureed diet with honey like liquids Labs/Tests Reviewed Pertinent Medications Reviewed Height 6 ft Weight 111.6 kg Usual Body Weight 244 kg [place] Body Weight (lbs) 178.0 BMI 33.3 Subjective/Other Information Pt stated he has good appetite and ate most of his breakfast and lunch today. Pt reported no recent weight changes. Per TORCH OPERATOR note pt will remain on pureed diet until MBS. Burn Absent Trauma Absent Is patient on ventilator? No Is Patient Ambulatory and/or Out of Bed No REE-([facility]-confined to bed) 2373.024 Kcal/Kg value to use for calculation 17 Approximate Energy Requirements Using 1897 kcal/Kg Calculation Used for Recommendations Kcal/kg Additional Notes Protein: 66-89 g (0.6-0.8 g/kg ) Fluids: 1 mL/kcal Nutrition Intervention Change Diet Order: Continue pureed diet with honey like liquids per TORCH OPERATOR Goal #1 Meet at least 75% of energy and protein needs Anticipated Discharge Needs: Unable to determine at this time Revisit per MD consult or patient Sign Off request:
[2018-07-06] MEDS: TYLENOL PO PRN (22:08)
[2018-07-07 06:03] LABS: Basophils % (Auto) 0.6 % (0.0-1.8); Eosinophils # (Auto) 0.2 K/mm3 (0.0-0.4); Eosinophils % (Auto) 2.2 % (0.0-4.3); Hematocrit 36.3 % (35.5-45.6); Lymphocytes # (Auto) 1.7 K/mm3 (1.2-5.4); Lymphocytes % (Auto) 24.8 % (13.4-35.0); Mean Corpuscular HGB Conc 33 % (32-34); Mean Corpuscular Volume 79 fl (84-94); Monocytes # (Auto) 0.6 K/mm3 (0.0-0.8); Monocytes % (Auto) 9.6 % (0.0-7.3); Platelet Count 215 K/mm3 (140-440); Red Blood Count 4.58 M/mm3 (3.65-5.03); Red Cell Distribution Width 15.2 % (13.2-15.2)
[2018-07-07] MEDS: MORPHINE IV PRN (06:29)
[2018-07-07 07:04] LABS: Calcium 9.2 mg/dL (8.4-10.2)
--- NOTE | 2018-07-07 08:22 | Progress Note ---
Assessment and Plan 57 y/o male with recent hemorrhagic stroke, now admitted with chest pain vs epigastric pain with radiation to the right neck shoulder region and concern for PE. 1. Negative doppler, nonspecific chest pain and not able to perform CTA seco ndary to renal disease. Pulm status has been stable. At this point would not recommend anticoagulation as I do not feel there is enough evidence to support this and I feel the risks outweigh the benefits given lack of concrete evidence of VTE 2. Patient with continued Fever. Did have some atelectasis on admission CXR. Can repeat. At risk for aspiration given history of recent stroke. Will order IS to bedside for use if patient able to obtain appropriate lip seal on device. Subjective Date of service: 07/07/18 Principal diagnosis: acute renal failure Interval history: patient spiked another temp. Has been started on abx by primary team. Dopplers of legs are negative as well as negative abdominal ultrasound. Objective Vital Signs - 12hr 07/06/18 07/06/18 07/07/18 21:28 22:00 05:19 Temperature 101.3 F H 99.3 F Pulse Rate 93 H 90 Respiratory 24 24 Rate Blood Pressure 166/85 180/105 O2 Sat by Pulse 94 94 95 Oximetry Constitutional: no acute distress, alert, other (left sided facial droop) Eyes: non-icteric ENT: oropharynx moist Neck: supple, no lymphadenopathy Effort: normal Ascultation: Bilateral: clear Percussion: Bilateral: not dull Tactile fremitus: Bilateral: normal Cardiovascular: regular rate and rhythm Gastrointestinal: normoactive bowel sounds, soft, other (mild distention) Integumentary: normal Extremities: no cyanosis, no edema, pink and warm, pulses normal Neurologic: normal mental status CBC and BMP: 07/07/18 05:40 07/07/18 05:40 ABG, PT/INR, D-dimer: PT/INR, D-dimer PT 14.0 Sec. (12.2-14.9) 07/04/18 21:49 INR 1.04 (0.87-1.13) 07/04/18 21:49 D-Dimer 4314.78 ng/mlDDU (0-234) H 07/04/18 21:49 Abnormal lab findings: Abnormal Labs 07/04/18 07/04/18 07/04/18 21:49 21:49 21:49 RBC 5.22 H Hgb MCV 80 L MCH 26 L RDW 15.7 H [place] % (Auto) 8.4 H Seg Neutrophils % 74.3 H D-Dimer 4314.78 H VBG pH 7.430 H Chloride BUN Creatinine Glucose Urine Creatinine Urine Total Protein 07/04/18 07/05/18 07/06/18 21:49 15:30 04:35 RBC Hgb 11.6 L MCV 80 L MCH 26 L RDW 15.5 H [place] % (Auto) 9.0 H Seg Neutrophils % 71.9 H D-Dimer VBG pH Chloride BUN 26 H Creatinine 2.3 H Glucose 166 H Urine Creatinine 91.6 H Urine Total Protein 16 H 07/06/18 07/07/18 07/07/18 04:35 05:40 05:40 RBC Hgb MCV 79 L MCH 26 L RDW [place] % (Auto) 9.6 H Seg Neutrophils % D-Dimer VBG pH Chloride 107.2 H BUN Creatinine 2.1 H 1.9 H Glucose 131 H Urine Creatinine Urine Total Protein
[2018-07-07] MEDS: APRESOLINE IV PRN ×2 (08:44→23:30)
[2018-07-07] MEDS ORDERED: LEVAQUIN 750MG/150ML 750 MG/150 ML BAG IV SCH (10:00)
[2018-07-07] MEDS ORDERED: MORPHINE IV PRN (10:10)
--- NOTE | 2018-07-07 10:49 | Consultation ---
History of Present Illness - Reason for Consult Consult date: 07/07/18 Fevers Requesting physician: RAFAEL OAKES - History of Present Illness This patient is a 57-year old male with a past medical history of a CVA with left-sided facial droop and left- sided residual weakness, May of last year Kidney disease and hypertension, , presents to the ED on 07/04/18 with a 2 day history of progressively worsening chest pain and shortness of breath. Upon further evaluation, chest pain vs epigastric pain with radiation to the right neck and shoulder region was concerning for PE. On admission WBC 9.4, Creatinine 2.3, Lactic acid 1.5, temperature 102.9, HR 115, BP 181/93, U/A is not consistent with UTI, Chest xray shows atelectasis/infiltrate in the right lower lobe. Venous duplex scan was negative for deep venous thrombosis bilaterally. Blood cultures show no growth to date and Urine culture is negative. Patient states that he had a stroke May 2018. He has been in [facility] until 06/24/2017. He states that he has not felt well since leaving rehabilitation and last week started coughing up blood with accompanying symptoms of SOB and chest pain. He denies travel outside of the country. He also denies tobacco, alcohol or illegal drug use Review of Systems: General: + fevers, chills, +nightswets, no rigors,unintentional weight change, or change in appetite HEENT: no new visual disturbance Respiratory: +cough, sputum, hemoptysis and shortness of breath Cardiovascular: + chest pain, orthopnea no syncope,lleg edema or cyanosis Gastrointestinal: No nausea, vomiting. Chronic diarrhea Genitourinary: No dysuria or hematuria Musculoskeletal: left side weakness, decreased left side joint motion, no joint pain, joint swelling, muscle aches Neurologic:CVA 06/08, residual left side weakness, left side facial droop, slurred speech Hematologic: No easy bruising or bleeding Skin: negative for rash, jaundice Psychiatric: No suicidal or homicidal ideation Past History Past Medical History: hypertension, hyperlipidemia, other (CKD, hemorrhagic stroke in 05/2018) Social history: , lives with family Medications and Allergies Allergies Allergy/AdvReac Type Severity Reaction Status Date / Time Penicillins Allergy Hives Verified 05/24/16 11:20 Home Medications Medication Instructions Recorded Confirmed Last Taken Type Aspirin 81 mg PO DAILY 07/04/18 07/04/18 07/04/18 History Atorvastatin Calcium [Lipitor] 40 mg PO DAILY 07/04/18 07/04/18 07/04/18 History Furosemide [Lasix] 20 mg PO DAILY 07/04/18 07/04/18 07/04/18 History Lisinopril 20 mg PO DAILY 07/04/18 07/04/18 07/04/18 History Metoprolol Tartrate 50 mg PO BID 07/04/18 07/04/18 07/04/18 History Minoxidil [Loniten] 2.5 mg PO BID 07/04/18 07/04/18 07/04/18 History amLODIPine [Norvasc] 10 mg PO DAILY 07/04/18 07/04/18 07/04/18 History Active Meds: Active Medications Acetaminophen (Tylenol) 650 mg PO Q4H PRN PRN Reason: Fever >101 Last Admin: 07/06/18 22:08 Dose: 650 mg Documented by: Hydralazine HCl (Apresoline) 10 mg IV Q4H PRN PRN Reason: Blood Pressure Last Admin: 07/07/18 08:44 Dose: 10 mg Documented by: Hydrocodone Bit/Homatropine Methylb (Hydromet) 10 ml PO Q6H PRN PRN Reason: Cough Levofloxacin/Dextrose (Levaquin 750mg/150ml) 750 mg in 150 mls @ 100 mls/hr IV Q48HR MARLENE; Protocol Last Admin: 07/07/18 09:00 Dose: 100 mls/hr Documented by: Morphine Sulfate (Morphine) 2 mg IV Q4H PRN PRN Reason: Pain, Moderate (4-6) Ondansetron HCl (Zofran) 4 mg IV Q8H PRN PRN Reason: Nausea And Vomiting Physical Examination - Physical Exam Narrative exam: Constitutional: Alert, cooperative. left side facial droop. mild distress Head, Ears, Nose: Normocephalic, atraumatic. External ears, nose normal Eyes: Conjunctivae/corneas clear. No icterus. No ptosis. Neck: Supple, no meningeal signs Oral: dentition good. no thrush Cardiovascular: S1, S2 normal. Respiratory: Good air entry, diminished at right base, +hemoptysis GI: Soft, non-tender; bowel sounds normal. No peritoneal signs Musculoskeletal: left side weakness, decreased left side joint motion Skin: No rash or abscess. Hem/Lymphatic: No palpable cervical or supraclavicular nodes. No lymphangitis Psych: Mood ok. Affect normal Neurological: Awake, alert, oriented. - Constitutional Vitals: Vital Signs Temp Pulse Resp BP Pulse Ox 99.3 F 85 24 162/95 93 07/07/18 05:19 07/07/18 08:41 07/07/18 05:19 07/07/18 08:44 07/07/18 08:41 Temperature -Last 24 Hours Temperature 99.3 F Temperature 101.3 F Temperature 99.0 F Temperature 98.7 F Temperature 100.0 F Results - Labs CBC & Chem 7: 07/07/18 05:40 07/07/18 05:40 Labs: Abnormal lab results 07/07/18 07/07/18 Range/Units 05:40 05:40 MCV 79 L (84-94) fl MCH 26 L (28-32) pg [place] % (Auto) 9.6 H (0.0-7.3) % Creatinine 1.9 H (0.8-1.5) mg/dL - Imaging and Cardiology Chest x-ray: report reviewed, image reviewed (Atelectasis/infiltrate in the right lower lobe) Assessment and Plan Imaging 07/04/2018 Pulmonary Perfusion Imaging: Intermediate probability exam for pulmonary embolus. 07/05/2018 Duplex Scan Lower Extremity Artery: Negative exam. No evidence of deep venous thrombosis bilaterally. Cultures: 07/04/2018 Blood: No growth to date 07/05/2018 Blood: no growth to date 07/04/2018 Urine: Less than 10,000 cfu/ml A/P: 57--year-old male CVA with left-sided facial droop and left- sided residual weakness, May of last year Kidney disease and hypertension, , presents to the ED on 07/04/18 with a 2 day history of progressively worsening chest pain and shortness of breath. Upon further evaluation, chest pain vs epigastric pain with ratiation to the right neck and shoulder regionn was concerning for PE. Also being admitted with: 1. SIRS vs Sepsis on admission: Evidenced by fever and tachycardia. Etiology unclear. Chest xray shows atelectiasis/infltrate in the right lower lobe. Concerning for a PE. Pulmonary was consulted secondary to concern for anticoagulation given recent hemorrhagic stroke last month. Duplex scan of lower extremity artery shows no evidence of deep venous thrombosis bilaterally. Continues to spike fevers,, Highest temp since admission 101.3, no luekocytoisit, blood cultures show no growth thus far. Urine culture is negative. Currently being treated with Levaquin. 2. Unexplained Fevers: etiology unclear, secondary to pulmonary processes, PE vs Pnuemonia: High D-dimer, VQ scan with intermediate probability of PE and patient presenting with chest pain with hemoptysis, apparently at high risk for anticoagulation. A pulmonary infarction is possible too. Will treat for pneumonia including possible aspiration (in setting of recent stroke and slurred speech) and monitor response 3. Acute Renal Failure v/s CKD: likely latter. Renally dose abx. 4. PCN allergy: Plan -f/u blood cultures -Continue Levaquin for now d/w Dr. Aaron Parra, [employer] [facility] M: [phone] O:[phone]
--- NOTE | 2018-07-07 11:11 | Fluoroscopy Report ---
MODIFIED BARIUM SWALLOW INDICATION: Stroke, impaired swallowing. COMPARISON: None similar. IMAGES/CINE CLIPS: 2 FINDINGS: Fluoroscopy with video provided by radiologist for speech therapist to assess the swallowing mechanism. Food items of various consistencies given. No aspiration or penetration. Small radiopaque dental material incidentally noted. IMPRESSION: Successful modified barium swallow. Please refer to detailed report from speech pathologist. Thank you for the opportunity to participate in this patient's care.
--- NOTE | 2018-07-07 11:14 | XRay Report ---
PORTABLE CHEST INDICATION: Fever. COMPARISON: 07/04/2018 FINDINGS: Portable, frontal chest radiograph demonstrates interval radiographic worsening with now approximately 7 cm opacity/pneumonia at the right lung base with obscuration of the right hemidiaphragm. Mild adjacent haziness may also be noted/possible pleural fluid. Stable exaggerated cardiomediastinal silhouette. No CHF. EKG leads. Stable bones. CONCLUSION: Interval radiographic worsening of right lower lung opacity/pneumonia, as described. Thank you for the opportunity to participate in this patient's care.
--- NOTE | 2018-07-07 11:40 | Progress Note ---
Assessment and Plan Assessment: Pneumonia Possible PE Chronic kidney disease Chest pain Plan: - Renal function reviewed. Serum creatinine trend down to 1.9 today, yesterday's serum creatinine was 2.1. - Cr baseline ~1.5-2, mild improvement since admission, off IVF for now - Renal US negative for obstruction - Renally dose medications - Strict I&O monitoring - Obtain daily weights - Monitor renal function Subjective Date of service: 07/07/18 Principal diagnosis: acute renal failure Interval history: Patient states he is still coughing up blood. Advised to notify attending. Objective - Vital Signs Vital signs: Vital Signs - 12hr 07/07/18 07/07/18 07/07/18 05:19 08:41 08:44 Temperature 99.3 F Pulse Rate 90 85 Respiratory 24 Rate Blood Pressure 180/105 162/95 162/95 O2 Sat by Pulse 95 93 Oximetry - General Appearance General appearance: well-developed, fatigue EENT: ATNC, PERRL, hearing intact, vision intact Neck: no JVD, supple Respiratory: Present: Decreased Breath Sounds Cardiology: S1S2 Gastrointestinal: normoactive bowel sounds Integumentary: warm and dry Neurologic: alert and oriented x3, facial droop Musculoskeletal: other (no edema) - Lab 07/07/18 05:40 07/07/18 05:40 Most recent lab results Calcium 9.2 mg/dL (8.4-10.2) 07/07/18 05:40 Phosphorus 2.80 mg/dL (2.5-4.5) 07/07/18 05:40 Urine Creatinine 91.6 mg/dL (0.1-20.0) H 07/05/18 15:30 Urine Sodium 99 mmol/L 07/05/18 15:30 Urine Total Protein 16 mg/dL (5-11.8) H 07/05/18 15:30 Medications & Allergies - Medications Allergies/Adverse Reactions: Allergies Penicillins Allergy (Verified 05/24/16 11:20) Hives Home Medications: Home Medications Medication Instructions Recorded Confirmed Last Taken Type Aspirin 81 mg PO DAILY 07/04/18 07/04/18 07/04/18 History Atorvastatin Calcium [Lipitor] 40 mg PO DAILY 07/04/18 07/04/18 07/04/18 History Furosemide [Lasix] 20 mg PO DAILY 07/04/18 07/04/18 07/04/18 History Lisinopril 20 mg PO DAILY 07/04/18 07/04/18 07/04/18 History Metoprolol Tartrate 50 mg PO BID 07/04/18 07/04/18 07/04/18 History Minoxidil [Loniten] 2.5 mg PO BID 07/04/18 07/04/18 07/04/18 History amLODIPine [Norvasc] 10 mg PO DAILY 07/04/18 07/04/18 07/04/18 History Active Medications: Generic Name Dose Route Start Last Admin Trade Name Freq PRN Reason Stop Dose Admin Acetaminophen 650 mg 07/05/18 01:17 07/06/18 22:08 Tylenol PO 650 mg Q4H PRN Administration Fever >101 Hydralazine HCl 10 mg 07/07/18 06:41 07/07/18 08:44 Apresoline IV 10 mg Q4H PRN Administration Blood Pressure Hydrocodone Bit/Homatropine Methylb 10 ml 07/05/18 11:03 Hydromet PO Q6H PRN Cough Levofloxacin/Dextrose 750 mg in 150 mls @ 100 mls/hr 07/07/18 10:00 07/07/18 09:00 Levaquin 750mg/150ml IV 100 mls/hr Q48HR MARLENE Administration Protocol Morphine Sulfate 2 mg 07/07/18 10:10 Morphine IV Q4H PRN Pain, Moderate (4-6) Ondansetron HCl 4 mg 07/05/18 01:25 Zofran IV Q8H PRN Nausea And Vomiting
--- NOTE | 2018-07-07 15:19 | Progress Note ---
Assessment and Plan Assessment and plan: 57-year-old man whose past medical history significant for hypertension, CVA with residual left-sided weakness is present to emergency department with complaints of chest pain, shortness of breath and fever. Patient's code was for the suspicion of PE was moderate probability for PE. Pneumonia - Chest x-ray showed right lower lobe pneumonia - Given his difficulty swallowing, aspiration pneumonia - Patient is IV Levaquin, he is allergic to penicillin - ID consulted, because despite on Levaquin he still febrile Moderate probability PE on VQ scan: - Doppler ultrasound was negative for DVT - Couldn't do CTA - Patient does small hemorrhagic stroke on his previous admission - Neurology and pulmonary was consulted and recommended against anticoagulation Dysphagia - Due to neurologic cause - Speech therapy was consulted and recommendation appreciated CKD - Patient is at baseline Disposition - Continue inpatient care. History Interval history: Patient was seen and evaluated this morning, patient is still shooting fever, c/o shortness of breath. Hospitalist Physical - Physical exam Narrative exam: Not in cardiopulmonary distress. On IN oxygen The patient appeared well nourished and normally developed. Vital signs as documented. Head exam is unremarkable. No scleral icterus . Neck is without jugular venous distension, thyromegaly, or carotid bruits. Lungs are clear to auscultation. Cardiac exam reveals regular rate and Rhythm. First and second heart sounds normal. No murmurs, rubs or gallops. Abdominal exam reveals normal bowel sounds, no masses, no organomegaly and no aortic enlargement. Extremities are nonedematous . SUPERVISOR SIGN SHOP: Alert and oriented 3. Mild left-sided weakness with left sided facial palsy. - Constitutional Vitals: Temp Pulse Resp BP Pulse Ox 99.3 F 85 24 162/95 100 07/07/18 05:19 07/07/18 08:41 07/07/18 05:19 07/07/18 08:44 07/07/18 09:50 Results - Labs CBC & Chem 7: 07/07/18 05:40 07/07/18 05:40 Labs: Laboratory Last Values WBC 6.7 K/mm3 (4.5-11.0) 07/07/18 05:40 RBC 4.58 M/mm3 (3.65-5.03) 07/07/18 05:40 Hgb 12.0 gm/dl (11.8-15.2) 07/07/18 05:40 Hct 36.3 % (35.5-45.6) 07/07/18 05:40 MCV 79 fl (84-94) L 07/07/18 05:40 MCH 26 pg (28-32) L 07/07/18 05:40 MCHC 33 % (32-34) 07/07/18 05:40 RDW 15.2 % (13.2-15.2) 07/07/18 05:40 Plt Count 215 K/mm3 (140-440) 07/07/18 05:40 Lymph % (Auto) 24.8 % (13.4-35.0) 07/07/18 05:40 [place] % (Auto) 9.6 % (0.0-7.3) H 07/07/18 05:40 Eos % (Auto) 2.2 % (0.0-4.3) 07/07/18 05:40 Baso % (Auto) 0.6 % (0.0-1.8) 07/07/18 05:40 Lymph # 1.7 K/mm3 (1.2-5.4) 07/07/18 05:40 [place] # 0.6 K/mm3 (0.0-0.8) 07/07/18 05:40 Eos # 0.2 K/mm3 (0.0-0.4) 07/07/18 05:40 Baso # 0.0 K/mm3 (0.0-0.1) 07/07/18 05:40 Seg Neutrophils % 62.8 % (40.0-70.0) 07/07/18 05:40 Seg Neutrophils # 4.2 K/mm3 (1.8-7.7) 07/07/18 05:40 PT 14.0 Sec. (12.2-14.9) 07/04/18 21:49 INR 1.04 (0.87-1.13) 07/04/18 21:49 D-Dimer 4314.78 ng/mlDDU (0-234) H 07/04/18 21:49 VBG pH 7.430 (7.320-7.420) H 07/04/18 21:49 Sodium 141 mmol/L (137-145) 07/07/18 05:40 Potassium 4.1 mmol/L (3.6-5.0) 07/07/18 05:40 Chloride 106.9 mmol/L (98-107) 07/07/18 05:40 Carbon Dioxide 22 mmol/L (22-30) 07/07/18 05:40 Anion Gap 16 mmol/L 07/07/18 05:40 BUN 18 mg/dL (9-20) 07/07/18 05:40 Creatinine 1.9 mg/dL (0.8-1.5) H 07/07/18 05:40 Estimated GFR 44 ml/min 07/07/18 05:40 BUN/Creatinine Ratio 9 % 07/07/18 05:40 Glucose 94 mg/dL (75-100) 07/07/18 05:40 Lactic Acid 1.50 mmol/L (0.7-2.0) 07/05/18 11:47 Calcium 9.2 mg/dL (8.4-10.2) 07/07/18 05:40 Phosphorus 2.80 mg/dL (2.5-4.5) 07/07/18 05:40 Total Bilirubin 0.40 mg/dL (0.1-1.2) 07/04/18 21:49 AST 24 units/L (5-40) 07/04/18 21:49 ALT 41 units/L (7-56) 07/04/18 21:49 Alkaline Phosphatase 73 units/L (35-129) 07/04/18 21:49 Total Creatine Kinase 113 units/L (55-170) 07/05/18 11:47 CK-MB (CK-2) 1.5 ng/mL (0.0-4.0) 07/05/18 11:47 CK-MB (CK-2) Rel Index 1.3 (0-4) 07/05/18 11:47 Troponin T < 0.010 ng/mL (0.00-0.029) 07/05/18 11:47 NT-Pro-B Natriuret Pep 332.9 pg/mL (0-900) 07/04/18 Unknown Total Protein 7.8 g/dL (6.3-8.2) 07/04/18 21:49 Albumin 4.0 g/dL (3.9-5) 07/04/18 21:49 Albumin/Globulin Ratio 1.1 % 07/04/18 21:49 Urine Color Yellow (Yellow) 07/05/18 06:19 Urine Turbidity Clear (Clear) 07/05/18 06:19 Urine pH 5.0 (5.0-7.0) 07/05/18 06:19 Ur Specific [place] 1.015 (1.003-1.030) 07/05/18 06:19 Urine Protein <15 mg/dl mg/dL (Negative) 07/05/18 06:19 Urine Glucose (UA) Neg mg/dL (Negative) 07/05/18 06:19 Urine Ketones Neg mg/dL (Negative) 07/05/18 06:19 Urine Blood Neg (Negative) 07/05/18 06:19 Urine Nitrite Neg (Negative) 07/05/18 06:19 Urine Bilirubin Neg (Negative) 07/05/18 06:19 Urine Urobilinogen < 2.0 mg/dL (<2.0) 07/05/18 06:19 Ur Leukocyte Esterase Neg (Negative) 07/05/18 06:19 Urine WBC (Auto) 1.0 /HPF (0.0-6.0) 07/05/18 06:19 Urine RBC (Auto) 4.0 /HPF (0.0-6.0) 07/05/18 06:19 U Epithel Cells (Auto) 1.0 /HPF (0-13.0) 07/05/18 06:19 Urine Mucus Few /HPF 07/05/18 06:19 Urine Creatinine 91.6 mg/dL (0.1-20.0) H 07/05/18 15:30 Protein/Creatinin Ratio 0.17 07/05/18 15:30 Urine Sodium 99 mmol/L 07/05/18 15:30 Urine Total Protein 16 mg/dL (5-11.8) H 07/05/18 15:30 Nutrition/Malnutrition Assess - Dietary Evaluation Nutrition/Malnutrition Findings: Nutrition Notes Start: 07/05/18 15:23 Freq: Status: Active Protocol: Document 07/06/18 10:02 LM (Rec: 07/06/18 11:12 LM [id number]) Co-Sign 07/06/18 10:02 LP Nutrition Notes Initial or Follow up Brief Note Current Diagnosis CKD(stage I-IV) Coronary Artery Disease Hypertension Stroke Other Pertinent Diagnosis R Lung Pneu, PE, CKD Current Diet Pureed diet with honey like liquids Labs/Tests Reviewed Pertinent Medications Reviewed Height 6 ft Weight 111.6 kg Usual Body Weight 244 kg [place] Body Weight (lbs) 178.0 BMI 33.3 Subjective/Other Information Pt stated he has good appetite and ate most of his breakfast and lunch today. Pt reported no recent weight changes. Per AIR FORCE SENIOR OFFICER note pt will remain on pureed diet until MBS. Burn Absent Trauma Absent Is patient on ventilator? No Is Patient Ambulatory and/or Out of Bed No REE-([place]-confined to bed) 2373.024 Kcal/Kg value to use for calculation 17 Approximate Energy Requirements Using 1897 kcal/Kg Calculation Used for Recommendations Kcal/kg Additional Notes Protein: 66-89 g (0.6-0.8 g/kg ) Fluids: 1 mL/kcal Nutrition Intervention Change Diet Order: Continue pureed diet with honey like liquids per AIR FORCE SENIOR OFFICER Goal #1 Meet at least 75% of energy and protein needs Anticipated Discharge Needs: Unable to determine at this time Revisit per MD consult or patient Sign Off request:
[2018-07-07] MEDS ORDERED: VANCOMYCIN PHARMACY TO DOSE IV SCH (16:00)
[2018-07-07] MEDS: VANCOMYCIN 2,000 MG in NACL 0.9% 500 ML 500 ML IV SCH (18:27)
[2018-07-07] MEDS: ROCEPHIN/NS 2 GM/100 ML 2 GM/100 ML BAG IV SCH (22:02)
[2018-07-07] MEDS: TYLENOL PO PRN (23:30)
[2018-07-08 06:31] LABS: Basophils % (Auto) 0.6 % (0.0-1.8); Eosinophils # (Auto) 0.1 K/mm3 (0.0-0.4); Eosinophils % (Auto) 1.8 % (0.0-4.3); Hematocrit 38.9 % (35.5-45.6); Lymphocytes # (Auto) 1.4 K/mm3 (1.2-5.4); Lymphocytes % (Auto) 22.7 % (13.4-35.0); Mean Corpuscular HGB Conc 33 % (32-34); Mean Corpuscular Volume 78 fl (84-94); Monocytes # (Auto) 0.4 K/mm3 (0.0-0.8); Platelet Count 277 K/mm3 (140-440); Red Blood Count 4.97 M/mm3 (3.65-5.03); Red Cell Distribution Width 15.3 % (13.2-15.2)
[2018-07-08] MEDS: TYLENOL PO PRN ×2 (06:38→15:40)
[2018-07-08] MEDS: APRESOLINE IV PRN (06:38)
--- NOTE | 2018-07-08 08:34 | Progress Note ---
Assessment and Plan Imaging 07/04/2018 Pulmonary Perfusion Imaging: Intermediate probability exam for pulmonary embolus. 07/05/2018 Duplex Scan Lower Extremity Artery: Negative exam. No evidence of deep venous thrombosis bilaterally. Cultures: 07/04/2018 Blood: No growth to date 07/05/2018 Blood: no growth to date 07/04/2018 Urine: Less than 10,000 cfu/ml A/P: 57--year-old male CVA with left-sided facial droop and left- sided residual weakness, May of last year Kidney disease and hypertension, , presents to the ED on 07/04/18 with a 2 day history of progressively worsening chest pain and shortness of breath. Upon further evaluation, chest pain vs epigastric pain with ratiation to the right neck and shoulder regionn was concerning for PE. Also being admitted with: 1. SIRS vs Sepsis on admission: Evidenced by fever and tachycardia. Etiology unclear. Chest xray shows atelectiasis/infltrate in the right lower lobe. Concerning for a PE. Pulmonary was consulted secondary to concern for anticoagulation given recent hemorrhagic stroke last month. Duplex scan of lower extremity artery shows no evidence of deep venous thrombosis bilaterally. Continues to spike fevers,, Highest temp since admission 101.3, no luekocytoisit, blood cultures show no growth thus far. Urine culture is negative. Currently being treated with Levaquin. 2. Unexplained Fevers: etiology unclear, secondary to pulmonary processes, PE vs Pnuemonia: High D-dimer, VQ scan with intermediate probability of PE and patient presenting with chest pain with hemoptysis, apparently at high risk for anticoagulation. A pulmonary infarction is possible too. Will treat for pneumonia including possible aspiration (in setting of recent stroke and slurred speech) and monitor response 3. Acute Renal Failure v/s CKD: likely latter. Renally dose abx. 4. PCN allergy: Remote. No reaction reported to Cephalosporin. Continue to monitor. Plan -f/u blood cultures- -f/u sputum culture -continue ceftriaxone -continue vancomycin [facility] M: [id number] O:[phone] Subjective Date of service: 07/08/18 Principal diagnosis: acute renal failure Interval history: Patient seen and examined. at bedside. Siting up in the chair, denies fevers, rashes or SOB. Nurses notes, lab and reports reviewed, discussed with and patient. Objective - Exam Narrative Exam: Constitutional: Alert, cooperative. left side facial droop. no acute distress Head, Ears, Nose: Normocephalic, atraumatic. External ears, nose normal Eyes: Conjunctivae/corneas clear. No icterus. No ptosis. Neck: Supple, no meningeal signs Oral: dentition good. no thrush Cardiovascular: S1, S2 normal. Respiratory: Good air entry, diminished at right base, +hemoptysis GI: Soft, non-tender; bowel sounds normal. No peritoneal signs Musculoskeletal: left side weakness, decreased left side joint motion Skin: No rash or abscess. Hem/Lymphatic: No palpable cervical or supraclavicular nodes. No lymphangitis Psych: Mood ok. Affect normal Neurological: Awake, alert, oriented. - Constitutional Vitals: Vital Signs Temp Pulse Resp BP Pulse Ox 99.9 F H 102 H 24 182/106 94 07/08/18 05:19 07/08/18 05:19 07/08/18 05:19 07/08/18 05:19 07/08/18 05:19 Temperature -Last 24 Hours Temperature 99.9 F Temperature 100.8 F - Labs CBC & Chem 7: 07/08/18 05:47 07/08/18 05:47 Labs: Abnormal lab results 07/08/18 07/08/18 Range/Units 05:47 05:47 MCV 78 L (84-94) fl MCH 26 L (28-32) pg RDW 15.3 H (13.2-15.2) % Carbon Dioxide 21 L (22-30) mmol/L Creatinine 1.9 H (0.8-1.5) mg/dL
--- NOTE | 2018-07-08 10:16 | Progress Note ---
Assessment and Plan Assessment: Pneumonia Possible PE Chronic kidney disease Chest pain Plan: - Cr baseline ~1.5-2, mild improvement since admission, off IVF for now - Renal US negative for obstruction - Renally dose medications - Strict I&O monitoring - Obtain daily weights - Monitor renal function Subjective Date of service: 07/08/18 Principal diagnosis: acute renal failure Interval history: remains to have mild chest pain Objective - Vital Signs Vital signs: Vital Signs - 12hr 07/07/18 07/08/18 23:09 05:19 Temperature 100.8 F H 99.9 F H Pulse Rate 100 H 102 H Respiratory 32 H 24 Rate Blood Pressure 180/107 182/106 O2 Sat by Pulse 92 94 Oximetry - General Appearance General appearance: well-developed, well-nourished EENT: ATNC, PERRL Neck: no JVD, no carotid bruit Respiratory: Present: Clear to Ascultation Cardiology: regular, S1S2 Gastrointestinal: normoactive bowel sounds, no tenderness, no distended Integumentary: no rash, warm and dry Neurologic: no focal deficit, no asterixis, alert and oriented x3 Musculoskeletal: other (no edema in BLE) Psychiatric: mood/affect appropriate, cooperative - Lab 07/08/18 05:47 07/08/18 05:47 Most recent lab results Calcium 9.0 mg/dL (8.4-10.2) 07/08/18 05:47 Phosphorus 2.90 mg/dL (2.5-4.5) 07/08/18 05:47 Urine Creatinine 91.6 mg/dL (0.1-20.0) H 07/05/18 15:30 Urine Sodium 99 mmol/L 07/05/18 15:30 Urine Total Protein 16 mg/dL (5-11.8) H 07/05/18 15:30 Medications & Allergies - Medications Allergies/Adverse Reactions: Allergies Penicillins Allergy (Verified 05/24/16 11:20) Hives Home Medications: Home Medications Medication Instructions Recorded Confirmed Last Taken Type Aspirin 81 mg PO DAILY 07/04/18 07/04/18 07/04/18 History Atorvastatin Calcium [Lipitor] 40 mg PO DAILY 07/04/18 07/04/18 07/04/18 History Furosemide [Lasix] 20 mg PO DAILY 07/04/18 07/04/18 07/04/18 History Lisinopril 20 mg PO DAILY 07/04/18 07/04/18 07/04/18 History Metoprolol Tartrate 50 mg PO BID 07/04/18 07/04/18 07/04/18 History Minoxidil [Loniten] 2.5 mg PO BID 07/04/18 07/04/18 07/04/18 History amLODIPine [Norvasc] 10 mg PO DAILY 07/04/18 07/04/18 07/04/18 History Active Medications: Generic Name Dose Route Start Last Admin Trade Name Freq PRN Reason Stop Dose Admin Acetaminophen 650 mg 07/05/18 01:17 07/08/18 06:38 Tylenol PO 650 mg Q4H PRN Administration Fever >101 Hydralazine HCl 10 mg 07/07/18 06:41 07/08/18 06:38 Apresoline IV 10 mg Q4H PRN Administration Blood Pressure Hydrocodone Bit/Homatropine Methylb 10 ml 07/05/18 11:03 Hydromet PO Q6H PRN Cough Ceftriaxone Sodium 2 gm in 100 mls @ 200 mls/hr 07/07/18 18:00 07/07/18 22:02 Rocephin/Ns 2 Gm/100 Ml IV 200 mls/hr Q24H MARLENE Administration Protocol Vancomycin HCl 2,000 mg/ 540 mls @ 250 mls/hr 07/07/18 18:00 07/07/18 18:27 Sodium Chloride IV 250 mls/hr Q24H MARLENE Administration Morphine Sulfate 2 mg 07/07/18 10:10 Morphine IV Q4H PRN Pain, Moderate (4-6) Ondansetron HCl 4 mg 07/05/18 01:25 Zofran IV Q8H PRN Nausea And Vomiting
--- NOTE | 2018-07-08 14:12 | Progress Note ---
Assessment and Plan Assessment and plan: 57-year-old man whose past medical history significant for hypertension, CVA with residual left-sided weakness is present to emergency department with complaints of chest pain, shortness of breath and fever. Patient's code was for the suspicion of PE was moderate probability for PE. Pneumonia - Chest x-ray showed right lower lobe pneumonia - Given his difficulty swallowing, aspiration pneumonia - Patient is IV Levaquin, he is allergic to penicillin - ID consulted, because despite on Levaquin he still febrile Moderate probability PE on VQ scan: - Doppler ultrasound was negative for DVT - Couldn't do CTA - Patient had small hemorrhagic stroke on his previous admission - Neurology and pulmonary was consulted and recommended against anticoagulation Dysphagia - Due to neurologic cause - Speech therapy was consulted and recommendation appreciated CKD - Creatinine is at baseline Disposition - Continue inpatient care. History Interval history: Patient was seen and evaluated this morning, patient is still shooting fever, c/o shortness of breath. Hospitalist Physical - Physical exam Narrative exam: Not in cardiopulmonary distress. On [place] oxygen The patient appeared well nourished and normally developed. Vital signs as documented. Head exam is unremarkable. No scleral icterus . Neck is without jugular venous distension, thyromegaly, or carotid bruits. Lungs are clear to auscultation. Cardiac exam reveals regular rate and Rhythm. First and second heart sounds normal. No murmurs, rubs or gallops. Abdominal exam reveals normal bowel sounds, no masses, no organomegaly and no aortic enlargement. Extremities are nonedematous . MANAGER LEARNING: Alert and oriented 3. Mild left-sided weakness with left sided facial palsy. - Constitutional Vitals: Temp Pulse Resp BP Pulse Ox 99.0 F 114 H 16 115/78 95 07/08/18 13:08 07/08/18 13:08 07/08/18 13:08 07/08/18 13:08 07/08/18 13:08 Results - Labs CBC & Chem 7: 07/08/18 05:47 07/08/18 05:47 Labs: Laboratory Last Values WBC 6.0 K/mm3 (4.5-11.0) 07/08/18 05:47 RBC 4.97 M/mm3 (3.65-5.03) 07/08/18 05:47 Hgb 13.0 gm/dl (11.8-15.2) 07/08/18 05:47 Hct 38.9 % (35.5-45.6) 07/08/18 05:47 MCV 78 fl (84-94) L 07/08/18 05:47 MCH 26 pg (28-32) L 07/08/18 05:47 MCHC 33 % (32-34) 07/08/18 05:47 RDW 15.3 % (13.2-15.2) H 07/08/18 05:47 Plt Count 277 K/mm3 (140-440) 07/08/18 05:47 Lymph % (Auto) 22.7 % (13.4-35.0) 07/08/18 05:47 [place] % (Auto) 7.0 % (0.0-7.3) 07/08/18 05:47 Eos % (Auto) 1.8 % (0.0-4.3) 07/08/18 05:47 Baso % (Auto) 0.6 % (0.0-1.8) 07/08/18 05:47 Lymph # 1.4 K/mm3 (1.2-5.4) 07/08/18 05:47 [place] # 0.4 K/mm3 (0.0-0.8) 07/08/18 05:47 Eos # 0.1 K/mm3 (0.0-0.4) 07/08/18 05:47 Baso # 0.0 K/mm3 (0.0-0.1) 07/08/18 05:47 Seg Neutrophils % 67.9 % (40.0-70.0) 07/08/18 05:47 Seg Neutrophils # 4.1 K/mm3 (1.8-7.7) 07/08/18 05:47 PT 14.0 Sec. (12.2-14.9) 07/04/18 21:49 INR 1.04 (0.87-1.13) 07/04/18 21:49 D-Dimer 4314.78 ng/mlDDU (0-234) H 07/04/18 21:49 VBG pH 7.430 (7.320-7.420) H 07/04/18 21:49 Sodium 138 mmol/L (137-145) 07/08/18 05:47 Potassium 3.8 mmol/L (3.6-5.0) 07/08/18 05:47 Chloride 103.6 mmol/L (98-107) 07/08/18 05:47 Carbon Dioxide 21 mmol/L (22-30) L 07/08/18 05:47 Anion Gap 17 mmol/L 07/08/18 05:47 BUN 20 mg/dL (9-20) 07/08/18 05:47 Creatinine 1.9 mg/dL (0.8-1.5) H 07/08/18 05:47 Estimated GFR 44 ml/min 07/08/18 05:47 BUN/Creatinine Ratio 11 % 07/08/18 05:47 Glucose 100 mg/dL (75-100) 07/08/18 05:47 Lactic Acid 1.50 mmol/L (0.7-2.0) 07/05/18 11:47 Calcium 9.0 mg/dL (8.4-10.2) 07/08/18 05:47 Phosphorus 2.90 mg/dL (2.5-4.5) 07/08/18 05:47 Total Bilirubin 0.40 mg/dL (0.1-1.2) 07/04/18 21:49 AST 24 units/L (5-40) 07/04/18 21:49 ALT 41 units/L (7-56) 07/04/18 21:49 Alkaline Phosphatase 73 units/L (35-129) 07/04/18 21:49 Total Creatine Kinase 113 units/L (55-170) 07/05/18 11:47 CK-MB (CK-2) 1.5 ng/mL (0.0-4.0) 07/05/18 11:47 CK-MB (CK-2) Rel Index 1.3 (0-4) 07/05/18 11:47 Troponin T < 0.010 ng/mL (0.00-0.029) 07/05/18 11:47 NT-Pro-B Natriuret Pep 332.9 pg/mL (0-900) 07/04/18 Unknown Total Protein 7.8 g/dL (6.3-8.2) 07/04/18 21:49 Albumin 4.0 g/dL (3.9-5) 07/04/18 21:49 Albumin/Globulin Ratio 1.1 % 07/04/18 21:49 Urine Color Yellow (Yellow) 07/05/18 06:19 Urine Turbidity Clear (Clear) 07/05/18 06:19 Urine pH 5.0 (5.0-7.0) 07/05/18 06:19 Ur Specific [place] 1.015 (1.003-1.030) 07/05/18 06:19 Urine Protein <15 mg/dl mg/dL (Negative) 07/05/18 06:19 Urine Glucose (UA) Neg mg/dL (Negative) 07/05/18 06:19 Urine Ketones Neg mg/dL (Negative) 07/05/18 06:19 Urine Blood Neg (Negative) 07/05/18 06:19 Urine Nitrite Neg (Negative) 07/05/18 06:19 Urine Bilirubin Neg (Negative) 07/05/18 06:19 Urine Urobilinogen < 2.0 mg/dL (<2.0) 07/05/18 06:19 Ur Leukocyte Esterase Neg (Negative) 07/05/18 06:19 Urine WBC (Auto) 1.0 /HPF (0.0-6.0) 07/05/18 06:19 Urine RBC (Auto) 4.0 /HPF (0.0-6.0) 07/05/18 06:19 U Epithel Cells (Auto) 1.0 /HPF (0-13.0) 07/05/18 06:19 Urine Mucus Few /HPF 07/05/18 06:19 Urine Creatinine 91.6 mg/dL (0.1-20.0) H 07/05/18 15:30 Protein/Creatinin Ratio 0.17 07/05/18 15:30 Urine Sodium 99 mmol/L 07/05/18 15:30 Urine Total Protein 16 mg/dL (5-11.8) H 07/05/18 15:30 Nutrition/Malnutrition Assess - Dietary Evaluation Nutrition/Malnutrition Findings: Nutrition Notes Start: 07/05/18 15:23 Freq: Status: Active Protocol: Document 07/06/18 10:02 LM (Rec: 07/06/18 11:12 LM [id number]) Co-Sign 07/06/18 10:02 LP Nutrition Notes Initial or Follow up Brief Note Current Diagnosis CKD(stage I-IV) Coronary Artery Disease Hypertension Stroke Other Pertinent Diagnosis R Lung Pneu, PE, CKD Current Diet Pureed diet with honey like liquids Labs/Tests Reviewed Pertinent Medications Reviewed Height 6 ft Weight 111.6 kg Usual Body Weight 244 kg [place] Body Weight (lbs) 178.0 BMI 33.3 Subjective/Other Information Pt stated he has good appetite and ate most of his breakfast and lunch today. Pt reported no recent weight changes. Per MACHINE FILLER SERVICER note pt will remain on pureed diet until MBS. Burn Absent Trauma Absent Is patient on ventilator? No Is Patient Ambulatory and/or Out of Bed No REE-([place]-confined to bed) 2373.024 Kcal/Kg value to use for calculation 17 Approximate Energy Requirements Using 1897 kcal/Kg Calculation Used for Recommendations Kcal/kg Additional Notes Protein: 66-89 g (0.6-0.8 g/kg ) Fluids: 1 mL/kcal Nutrition Intervention Change Diet Order: Continue pureed diet with honey like liquids per MACHINE FILLER SERVICER Goal #1 Meet at least 75% of energy and protein needs Anticipated Discharge Needs: Unable to determine at this time Revisit per MD consult or patient Sign Off request:
[2018-07-08] MEDS: NORVASC PO SCH (19:21)
[2018-07-08] MEDS: ROCEPHIN/NS 2 GM/100 ML 2 GM/100 ML BAG IV SCH (19:22)
[2018-07-08] MEDS: VANCOMYCIN 2,000 MG in NACL 0.9% 500 ML 500 ML IV SCH (19:22)
[2018-07-08] MEDS: LONITEN PO SCH (21:21)
[2018-07-08] MEDS: LOPRESSOR PO SCH (21:21)
[2018-07-09 06:40] LABS: Calcium 8.7 mg/dL (8.4-10.2)
--- NOTE | 2018-07-09 08:31 | Progress Note ---
Assessment and Plan Imaging 07/04/2018 Pulmonary Perfusion Imaging: Intermediate probability exam for pulmonary embolus. 07/05/2018 Duplex Scan Lower Extremity Artery: Negative exam. No evidence of deep venous thrombosis bilaterally. Cultures: 07/04/2018 Blood: No growth to date 07/05/2018 Blood: no growth to date 07/04/2018 Urine: Less than 10,000 cfu/ml A/P: 57--year-old male CVA with left-sided facial droop and left- sided residual weakness, May of last year Kidney disease and hypertension, , presents to the ED on 07/04/18 with a 2 day history of progressively worsening chest pain and shortness of breath. Upon further evaluation, chest pain vs epigastric pain with ratiation to the right neck and shoulder regionn was concerning for PE. Also being admitted with: 1. SIRS vs Sepsis on admission: Improved. Evidenced by fever and tachycardia. Etiology unclear. Chest xray shows atelectiasis/infltrate in the right lower lobe. Concerning for a PE. Pulmonary was consulted secondary to concern for anticoagulation given recent hemorrhagic stroke last month. Duplex scan of lower extremity artery shows no evidence of deep venous thrombosis bilaterally. Continues to spike fevers,, Highest temp since admission 101.3, no luekocytoisit, blood cultures show no growth thus far. Urine culture is negative. 2. Unexplained Fevers: Resolved. etiology unclear, secondary to pulmonary processes, PE vs Pnuemonia: High D-dimer, VQ scan with intermediate probability of PE and patient presenting with chest pain with hemoptysis, apparently at high risk for anticoagulation. A pulmonary infarction is possible too. Will treat for pneumonia including possible aspiration (in setting of recent stroke and slurred speech) and monitor response 3. Acute Renal Failure v/s CKD: likely latter. Renally dose abx. 4. PCN allergy: Remote. No reaction reported to Cephalosporin. Continue to monitor. Plan -f/u blood cultures- -continue ceftriaxone -continue vancomycin Can be discharged home from ID standpoint on Ceftin 500mg, PO BID and Doxycycline 100mg, PO BID for 10 days -Prescriptions on chart [facility] M: [id number] O:[phone] Subjective Date of service: 07/09/18 Principal diagnosis: acute renal failure Interval history: Patient seen and examined. Siting up in the chair, denies fevers, rashes or SOB. Nurses notes, lab and reports reviewed, discussed with and patient. Objective - Exam Narrative Exam: Constitutional: Alert, cooperative. left side facial droop. no acute distress Head, Ears, Nose: Normocephalic, atraumatic. External ears, nose normal Eyes: Conjunctivae/corneas clear. No icterus. No ptosis. Neck: Supple, no meningeal signs Oral: dentition good. no thrush Cardiovascular: S1, S2 normal. Respiratory: Good air entry, diminished at right base, +hemoptysis GI: Soft, non-tender; bowel sounds normal. No peritoneal signs Musculoskeletal: left side weakness, decreased left side joint motion Skin: No rash or abscess. Hem/Lymphatic: No palpable cervical or supraclavicular nodes. No lymphangitis Psych: Mood ok. Affect normal Neurological: Awake, alert, oriented. - Constitutional Vitals: Vital Signs Temp Pulse Resp BP Pulse Ox 98.1 F 88 24 122/68 89 07/09/18 05:20 07/09/18 05:20 07/09/18 05:20 07/09/18 05:20 07/09/18 05:20 Temperature -Last 24 Hours Temperature 98.1 F Temperature 99.0 F Temperature 99.2 F Temperature 98.7 F Temperature 99.0 F - Labs CBC & Chem 7: 07/08/18 05:47 07/09/18 04:39 Labs: Abnormal lab results 07/09/18 Range/Units 04:39 Sodium 136 L (137-145) mmol/L Potassium 5.2 H D (3.6-5.0) mmol/L Carbon Dioxide 18 L (22-30) mmol/L BUN 21 H (9-20) mg/dL Creatinine 2.0 H (0.8-1.5) mg/dL
[2018-07-09] MEDS: NORVASC PO SCH (09:55)
[2018-07-09] MEDS: APRESOLINE PO SCH ×2 (09:55→15:26)
[2018-07-09] MEDS: LONITEN PO SCH (09:55)
[2018-07-09] MEDS: LOPRESSOR PO SCH (09:59)
[2018-07-09] MEDS ORDERED: CATAPRES PO SCH (10:00)
[2018-07-09] MEDS ORDERED: ZESTRIL PO SCH (10:00)
[2018-07-09] MEDS ORDERED: LASIX PO SCH (10:00)
--- NOTE | 2018-07-09 10:46 | Progress Note ---
Assessment and Plan Assessment: community acquired Pneumonia Chronic kidney disease stage III secondary to HTN hyperkalemia Metabolic acidosis Chest pain Plan: - Cr baseline ~1.5-2, stable - low K diet ordered - started on bicitra for worsening acidosis - Renal US negative for obstruction - Renally dose medications - Strict I&O monitoring - Obtain daily weights - Monitor renal function Subjective Date of service: 07/09/18 Principal diagnosis: acute renal failure Interval history: comfortable, tolerating PT Objective - Vital Signs Vital signs: Vital Signs - 12hr 07/09/18 07/09/18 05:15 05:20 Temperature 99.0 F 98.1 F Pulse Rate 100 H 88 Respiratory 28 H 24 Rate Blood Pressure 158/91 122/68 O2 Sat by Pulse 91 89 Oximetry - General Appearance General appearance: well-developed, well-nourished, appears stated age EENT: ATNC, PERRL Neck: no JVD, no carotid bruit Respiratory: Present: Clear to Ascultation. Absent: Rales, Ronchi Cardiology: regular, S1S2 Gastrointestinal: normoactive bowel sounds, no tenderness, no distended Integumentary: no rash, warm and dry Neurologic: no asterixis, alert and oriented x3 Musculoskeletal: other (no edema in BLE) Psychiatric: cooperative - Lab 07/08/18 05:47 07/09/18 04:39 Most recent lab results Calcium 8.7 mg/dL (8.4-10.2) 07/09/18 04:39 Phosphorus 3.20 mg/dL (2.5-4.5) 07/09/18 04:39 Urine Creatinine 91.6 mg/dL (0.1-20.0) H 07/05/18 15:30 Urine Sodium 99 mmol/L 07/05/18 15:30 Urine Total Protein 16 mg/dL (5-11.8) H 07/05/18 15:30 Medications & Allergies - Medications Allergies/Adverse Reactions: Allergies Penicillins Allergy (Verified 05/24/16 11:20) Hives Home Medications: Home Medications Medication Instructions Recorded Confirmed Last Taken Type Aspirin 81 mg PO DAILY 07/04/18 07/04/18 07/04/18 History Atorvastatin Calcium [Lipitor] 40 mg PO DAILY 07/04/18 07/04/18 07/04/18 History Furosemide [Lasix] 20 mg PO DAILY 07/04/18 07/04/18 07/04/18 History Lisinopril 20 mg PO DAILY 07/04/18 07/04/18 07/04/18 History Metoprolol Tartrate 50 mg PO BID 07/04/18 07/04/18 07/04/18 History Minoxidil [Loniten] 2.5 mg PO BID 07/04/18 07/04/18 07/04/18 History amLODIPine [Norvasc] 10 mg PO DAILY 07/04/18 07/04/18 07/04/18 History Active Medications: Generic Name Dose Route Start Last Admin Trade Name Freq PRN Reason Stop Dose Admin Acetaminophen 650 mg 07/05/18 01:17 07/08/18 15:40 Tylenol PO 650 mg Q4H PRN Administration Fever >101 Amlodipine Besylate 10 mg 07/08/18 18:00 07/09/18 09:55 Norvasc PO 10 mg DAILY MARLENE Administration Atorvastatin Calcium 40 mg 07/08/18 22:00 07/08/18 21:22 Lipitor PO 40 mg HS MARLENE Administration Citric Acid/Sodium Citrate 15 ml 07/09/18 14:00 Bicitra PO TID MARLENE Clonidine HCl 0.2 mg 07/09/18 10:00 07/09/18 09:55 Catapres PO 0.2 mg Q12HR MARLENE Administration Hydralazine HCl 10 mg 07/07/18 06:41 07/08/18 06:38 Apresoline IV 10 mg Q4H PRN Administration Blood Pressure Hydralazine HCl 100 mg 07/09/18 08:23 07/09/18 09:55 Apresoline PO 100 mg TID MARLENE Administration Hydrocodone Bit/Homatropine Methylb 10 ml 07/05/18 11:03 Hydromet PO Q6H PRN Cough Ceftriaxone Sodium 2 gm in 100 mls @ 200 mls/hr 07/07/18 18:00 07/08/18 19:22 Rocephin/Ns 2 Gm/100 Ml IV 200 mls/hr Q24H MARLENE Administration Protocol Vancomycin HCl 2,000 mg/ 540 mls @ 250 mls/hr 07/07/18 18:00 07/08/18 19:22 Sodium Chloride IV 250 mls/hr Q24H MARLENE Administration Metoprolol Tartrate 50 mg 07/08/18 22:00 07/09/18 09:59 Lopressor PO 50 mg BID MARLENE Administration Minoxidil 2.5 mg 07/08/18 22:00 07/09/18 09:55 Loniten PO 2.5 mg BID MARLENE Administration Morphine Sulfate 2 mg 07/07/18 10:10 Morphine IV Q4H PRN Pain, Moderate (4-6) Ondansetron HCl 4 mg 07/05/18 01:25 Zofran IV Q8H PRN Nausea And Vomiting
[2018-07-09 11:47] VITALS: BP 157/85
--- NOTE | 2018-07-09 13:05 | Discharge Summary ---
Providers - Providers Date of Admission: 07/05/18 01:06 Attending physician: RAFAEL OAKES MD 07/05/18 01:08 Consult to Physician [CONS] Stat Comment: Consulting Provider: KELLY BARRY Physician Instructions: Reason For Exam: PULM. EMBOLISM WITH HEMORRAGIC STROKE 4-5 WKS AGO 07/05/18 06:00 Consult to Physician [CONS] Routine Comment: Consulting Provider: NISHA BYRD Physician Instructions: Reason For Exam: CKD 07/05/18 11:04 Consult to Dietitian/Nutrition [CONS] Routine Physician Instructions: Reason For Exam: Reason for Consult: Poor oral intake 07/05/18 11:50 Consult to Physician [CONS] Routine Comment: Consulting Provider: HELEN CHAVEZ Physician Instructions: Reason For Exam: ANTICOAGULATION RECENT HEMORRHAGIC STROKE 07/05/18 12:11 Speech Therapy Evaluation and Treat [CONS] Urgent Reason For Exam: dsphysia 07/07/18 08:17 Consult to Physician [CONS] Routine Comment: Consulting Provider: AIME MCGEE Physician Instructions: Reason For Exam: RLLP, still shooting fever 07/09/18 08:26 Physical Therapy Evaluation and Treat [CONS] Routine Comment: Reason For Exam: weakness Primary care physician: RICK NARANJO [facility] Reason for admission: Pneumonia Condition: Stable Pertinent studies: Chest x-ray IMPRESSION: Atelectasis/infiltrate in the right lower lobe V/Q scan IMPRESSION: Intermediate probability exam for pulmonary embolus. Hospital course: 57-year-old man whose past medical history significant for hypertension, CVA with residual left-sided weakness is present to emergency department with complaints of chest pain, shortness of breath and fever. Patient's V/Q scan read as moderate probability for PE. we couldn't do CTA because of the CKD. Sepsis 2/2 Pneumonia - Chest x-ray showed right lower lobe pneumonia - Patient was IV Levaquin as inpatient and was continued with doxycycline and ceftin. ID said allergic to penicillin is not serious and ok to give him ceftin. - Sepsis resolved at the time of discharge Moderate probability PE on VQ scan: - Doppler ultrasound was negative for DVT - Couldn't do CTA chest because of - Patient had small hemorrhagic stroke on his previous admission - Neurology and pulmonary was consulted and recommended against anticoagulation Dysphagia - Due to neurologic cause - Speech therapy was consulted and recommendation appreciated - Patient will have speech therapy as an O/p. CVA with residual left sided weakness; continue PT as an O/P CKD;Creatinine is at baseline ID gave him a script for doxycycline and Ceftin. Patient discharged home in as a stable condition on home health. Disposition: [id number] TO HOME OR SELFCARE Time spent for discharge: 32 minutes - Discharge Diagnoses (1) History of CVA with residual deficit Status: Acute (2) Abnormal findings on imaging test Status: Acute (3) Acute chest pain Status: Acute (4) Hypertension Status: Acute Qualifiers: Hypertension type: essential hypertension Qualified Code(s): I10 - Essential (primary) hypertension (5) Pneumonia Status: Acute Qualifiers: Pneumonia type: due to unspecified organism Laterality: right Lung location: lower lobe of lung Qualified Code(s): J18.1 - Lobar pneumonia, unspecified organism (6) Sepsis Status: Acute Qualifiers: Sepsis type: sepsis due to unspecified organism Qualified Code(s): A41.9 - Sepsis, unspecified organism Core Measure Documentation - Palliative Care Palliative Care/ Comfort Measures: Not Applicable - Core Measures Any of the following diagnoses?: history only (CVA) Exam - Physical Exam Narrative exam: Not in cardiopulmonary distress. On [place] oxygen The patient appeared well nourished and normally developed. Vital signs as documented. Head exam is unremarkable. No scleral icterus . Neck is without jugular venous distension, thyromegaly, or carotid bruits. Lungs are clear to auscultation. Cardiac exam reveals regular rate and Rhythm. First and second heart sounds normal. No murmurs, rubs or gallops. Abdominal exam reveals normal bowel sounds, no masses, no organomegaly and no aortic enlargement. Extremities are nonedematous . RADIO TECHNICIAN: Alert and oriented 3. left-sided weakness with left sided facial palsy. - Constitutional Vitals: Temp Pulse Resp BP Pulse Ox 98.3 F 103 H 24 157/85 94 07/09/18 11:42 07/09/18 11:42 07/09/18 11:42 07/09/18 11:42 07/09/18 11:42 Plan Activity: advance as tolerated Weight Bearing Status: Partial Weight Bearing Diet: low fat, low cholesterol, low salt Follow up with: RICK NARANJO MD [Primary Care Provider] - 3-5 Days Prescriptions: amLODIPine [Norvasc] 10 mg PO DAILY #30 tablet Atorvastatin Calcium [Lipitor] 40 mg PO DAILY #30 tablet cefUROXime [Ceftin] 250 mg PO BID 10 Days #40 tablet cloNIDine [Catapres] 0.2 mg PO Q12HR #60 tablet Doxycycline [Vibramycin CAP] 100 mg PO Q12HR 10 Days #20 capsule hydrALAZINE [Apresoline TAB] 100 mg PO TID #90 tab Metoprolol Tartrate 50 mg PO BID #60 tablet Minoxidil [Loniten] 2.5 mg PO BID #60 tablet Other Discharge Orders: Occupational Therapy (Amb) Location: None Selected Physicial Therapy (Amb) Location: None Selected Speech Therapy (Amb) Location: None Selected
[2018-07-09] MEDS ORDERED: BICITRA PO SCH (14:00)
[2018-07-09] MEDS ORDERED: VANCOMYCIN 1,500 MG in NACL 0.9% 500 ML 500 ML IV SCH (22:00)
== END 2018-07-09 18:22 | disposition home or self-care (01) | DRG 871 ==
LOC: ED 21:23 → 4A 07-05 01:06 → 3A 07-05 07:12
PROVIDERS: ADMIT Internal Medicine; ATTEND Internal Medicine
DX: A41.9 Sepsis, unspecified organism (principal); I26.99 Other pulmonary embolism without acute cor pulmonale; J18.1 Lobar pneumonia, unspecified organism; R04.2 Hemoptysis; N17.9 Acute kidney failure, unspecified; I69.354 Hemiplegia and hemiparesis following cerebral infarction affecting left non-dominant side; N18.3 Chronic kidney disease, stage 3 (moderate); I12.9 Hypertensive chronic kidney disease with stage 1 through stage 4 chronic kidney disease, or unspecified chronic kidney disease; I25.10 Atherosclerotic heart disease of native coronary artery without angina pectoris; G43.909 Migraine, unspecified, not intractable, without status migrainosus; G47.30 Sleep apnea, unspecified; R13.10 Dysphagia, unspecified; Z88.0 Allergy status to penicillin; Z79.82 Long term (current) use of aspirin; Z79.899 Other long term (current) drug therapy; I25.2 Old myocardial infarction
CPT/HCPCS: 36415; 70450; 71045; 71046; 74230; 76700; 76770; 78582; 80048; 80053; 81001; 82140; 82550; 82553; 82570; 82805; 83880; 84100; 84156; 84300; 84484; 85025; 85027; 85379; 85610; 87040; 87086; 87205; 93005; 93010; 93308; 93321; 93325; 93970; 94760; 99285; G0378; A9270-GY; A9540; A9558; J0360; J0696; J1956; J2270; J3370; J7030; J7040